=== PATIENT | male | born 1955 | race Caucasian/White ===

== ENCOUNTER → 2019-11-22 07:35 | Outpatient (BNVA) | payer MEDICAID, SELFPAY | PROVIDERS: Family Provider Nurse Practitioner Family; PCP Nurse Practitioner Family; Visit Provider Psychiatry & Neurology Psychiatry | DX: F21 Schizotypal disorder (principal); F31.89 Other bipolar disorder | CPT/HCPCS: 99213 ==

== ENCOUNTER → 2020-02-15 11:09 | Outpatient (BNVA) | payer MEDICAID, SELFPAY | PROVIDERS: Family Provider Nurse Practitioner Family; PCP Nurse Practitioner Family; Visit Provider Psychiatry & Neurology Psychiatry | DX: F21 Schizotypal disorder (principal); F31.89 Other bipolar disorder | CPT/HCPCS: 99213 ==

== ENCOUNTER → 2020-04-18 08:10 | Outpatient (BNVA) | payer MEDICAID, SELFPAY | PROVIDERS: Family Provider Nurse Practitioner Family; PCP Nurse Practitioner Family; Visit Provider Psychiatry & Neurology Psychiatry | DX: F21 Schizotypal disorder (principal); F31.89 Other bipolar disorder | CPT/HCPCS: 99213 ==

== ENCOUNTER → 2020-06-19 07:58 | Outpatient (BNVA) | payer MEDICAID, SELFPAY | PROVIDERS: Family Provider Nurse Practitioner Family; PCP Nurse Practitioner Family; Visit Provider Psychiatry & Neurology Psychiatry | DX: F21 Schizotypal disorder (principal); F31.89 Other bipolar disorder | CPT/HCPCS: 99213 ==

== ENCOUNTER → 2020-09-13 09:00 | Outpatient (BNVA) | payer MEDICAID, SELFPAY | PROVIDERS: Family Provider Nurse Practitioner Family; Visit Provider Psychiatry & Neurology Psychiatry | DX: F21 Schizotypal disorder (principal); F31.89 Other bipolar disorder | CPT/HCPCS: 99214 ==

== ENCOUNTER → 2020-12-06 09:07 | Outpatient (BNVA) | payer MEDICAID, SELFPAY | PROVIDERS: Family Provider Nurse Practitioner Family; Visit Provider Psychiatry & Neurology Psychiatry | DX: F21 Schizotypal disorder (principal); F31.89 Other bipolar disorder | CPT/HCPCS: 99214 ==

== ENCOUNTER → 2021-03-26 06:55 | Outpatient (BNVA) | payer MEDICAID, SELFPAY | PROVIDERS: Family Provider Nurse Practitioner Family; PCP Nurse Practitioner Family; Visit Provider Psychiatry & Neurology Psychiatry | DX: F31.89 Other bipolar disorder (principal); F21 Schizotypal disorder | CPT/HCPCS: 99214 ==

== ENCOUNTER → 2021-06-18 07:58 | Outpatient (BNVA) | payer MEDICAID, SELFPAY | PROVIDERS: Family Provider Nurse Practitioner Family; PCP Nurse Practitioner Family; Visit Provider Psychiatry & Neurology Psychiatry | DX: F31.89 Other bipolar disorder (principal); F21 Schizotypal disorder; G47.20 Circadian rhythm sleep disorder, unspecified type | CPT/HCPCS: 99214 ==

== ENCOUNTER → 2021-10-16 13:58 | Outpatient (BNVA) | payer MEDICAID, SELFPAY | PROVIDERS: Family Provider Nurse Practitioner Family; PCP Nurse Practitioner Family; Visit Provider Internal Medicine Cardiovascular Disease | DX: I25.118 Atherosclerotic heart disease of native coronary artery with other forms of angina pectoris (principal); I77.810 Thoracic aortic ectasia; I10 Essential (primary) hypertension; J44.9 Chronic obstructive pulmonary disease, unspecified; E11.9 Type 2 diabetes mellitus without complications; Z79.4 Long term (current) use of insulin; Z79.84 Long term (current) use of oral hypoglycemic drugs; Z87.891 Personal history of nicotine dependence; I25.2 Old myocardial infarction | CPT/HCPCS: 99214 ==

== ENCOUNTER → 2023-07-12 15:09 | Outpatient (BNVA) | payer MEDICAID, SELFPAY | PROVIDERS: Family Provider Nurse Practitioner Family; PCP Nurse Practitioner Family; Visit Provider Internal Medicine Cardiovascular Disease | DX: R07.9 Chest pain, unspecified (principal); I48.91 Unspecified atrial fibrillation; I10 Essential (primary) hypertension; I25.10 Atherosclerotic heart disease of native coronary artery without angina pectoris; E78.5 Hyperlipidemia, unspecified; E11.43 Type 2 diabetes mellitus with diabetic autonomic (poly)neuropathy | CPT/HCPCS: 93005; 99215 ==

== ENCOUNTER 2025-04-07 15:52 | Observation (INO) | payer MEDICAID, SELFPAY ==
[2025-04-07] VITALS (31 sets, daily range): BP systolic 105–153; BP diastolic 54–101; PULSE 64–120; RESP 0–34; TEMP 36.9; O2SAT 92–99
--- NOTE | 2025-04-07 15:55 | ECG_ITS ---
[facility] Test Date: 2025-04-07 Pat Name: Marcos Pride Department: Room: 101 Gender: Male Applied Researcher: : [id number] Requested By: Aristides Leyva Order Number: [id number] Reading MD: ANH GUNN Measurements Intervals [place] Rate: 99 P: 0 IA: 0 QRS: -28 QRSD: 94 T: 193 QT: 344 QTc: 442 Interpretive Statements ATRIAL FIBRILLATION BORDERLINE LEFT AXIS DEVIATION [QRS AXIS < -20] MODERATE T-WAVE ABNORMALITY, CONSIDER INFERIOR ISCHEMIA [-0.1+ mV T-WAVE IN II/aVF] Compared to ECG 07/12/2023 15:13:15 Possible ischemia now present T-wave abnormality still present Electronically Signed On 04-08-2025 22:25:53 CDT by ANH GUNN [email or web address]
--- OUTSIDE RECORDS SUMMARY | 2025-04-07 15:56 | XMS_ITS | Encounter Summary ---
Author Organization [facility] Address [address] [place] [address] Care Team Providers Care Conveyor System Operator Name Role Phone Enrico Skinner MD Primary Care Provider +1 -[phone] Encounter Details Date Type Department Care Team (Latest Contact Info) Description 06/15/2000 Outpatient Historical [facility] Family Medicine- [place] [address] [place] [address] Michael Loco, NO ADDRESS ON FILE Esophageal reflux (Primary Dx); Chronic gingivitis; Unspecified disorder of male genital organs Social History Tobacco Use Types Packs/Day Years Used Date Smoking Tobacco: Never Assessed Sex and Gender Information Value Date Recorded Sex Assigned at Not on file 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
--- OUTSIDE RECORDS SUMMARY | 2025-04-07 15:56 | XMS_ITS | Encounter Summary ---
Author Organization [facility] Address [address] [place] [address] Care Team Providers Care Content Developer Name Role Phone Enrico Skinner MD Primary Care Provider +1 -[phone] Encounter Details Date Type Department Care Team (Latest Contact Info) Description 04/19/2006 Outpatient Historical [facility] Family Medicine- [address] [address] [place] [address] Tracie Sanders MD NO ADDRESS ON FILE Gastritis/Duodenitis (Primary Dx); Esophageal Reflux Social History Tobacco Use Types Packs/Day Years Used Date Smoking Tobacco: Never Assessed Sex and Gender Information Value Date Recorded Sex Assigned at Not on file 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
--- OUTSIDE RECORDS SUMMARY | 2025-04-07 15:56 | XMS_ITS | Encounter Summary ---
Author Organization [facility] Address [address] [place] [address] Care Team Providers Care Master At Arms Name Role Phone Enrico Skinner MD Primary Care Provider +1 -[phone] Encounter Details Date Type Department Care Team (Latest Contact Info) Description 07/08/2007 Outpatient Historical [facility] Imaging and Laboratory Services [address] [place] [address] Cosmo Gandhi MD [facility] [address] [place] [address] Calculus of Ureter Social History Tobacco Use Types Packs/Day Years Used Date Smoking Tobacco: Never Assessed Sex and Gender Information Value Date Recorded Sex Assigned at Not on file 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 Gender Identity Not on file Sexual Orientation Not on file documented as of this encounter Plan of Treatment Not on file documented as of this encounter Procedures Procedure Name Priority Date/Time Associated Diagnosis Comments XR ABDOMEN 1 VW Routine 07/14/2007 2:58 PM EYEGLASS INSPECTOR documented in this encounter Results * XR ABDOMEN 1 VW (07/14/2007 2:58 PM EYEGLASS INSPECTOR) Anatomical Region Laterality Modality Abdomen Other 07/14/2007 2:58 PM EYEGLASS INSPECTOR Narrative 07/14/2007 2:58 PM EYEGLASS INSPECTOR Exam: KUB Date/Time of Exam: Jul 14, 2007 2:58:20 PM History: RIGHT URETERAL STONE 592.1. Comparisons: None. Findings: A right double J ureteral stent is identified. There is a 7 mm calculus adjacent to the proximal to mid right ureteral stent between the L2 and L3 right transverse processes. There is a 4 mm calculus overlying the right renal outline. Bowel gas pattern is unremarkable. Degenerative changes of the lumbar spine are noted. Impressions: 1. Right double J ureteral stent. 2. There is a 7 mm calculus likely in the proximal right ureter adjoining the proximal to mid right ureteral stent. 3. Right renal calculus. - Procedure Note Paddy Sellers - 07/17/2007 Exam: KUB Date/Time of Exam: Jul 14, 2007 2:58:20 PM History: RIGHT URETERAL STONE 592.1. Comparisons: None. Findings: A right double J ureteral stent is identified. There is a 7 mmcalculus adjacent to the proximal to mid right ureteral stent between the L2 and L3 righttransverse processes. There is a 4 mm calculus overlying the right renal outline. Bowel gas pattern isunremarkable. Degenerative changes of the lumbar spine are noted. Impressions: 1. Right double J ureteral stent. 2. There is a 7 mm calculus likely in the proximal right ureter adjoiningthe proximal to mid right ureteral stent. 3. Right renal calculus. - Cosmo Gandhi MD DIAGNOSTIC IMAGING ORDERABLE S Final Result documented in this encounter Visit Diagnoses Diagnosis Calculus of ureter documented in this encounter Care Teams Master At Arms Relationship Specialty Start Date End Date Enrico Skinner MD [address] [facility] [address] [place] [address] PCP - General Family Practice 02/15/18 documented as of this encounter
--- OUTSIDE RECORDS SUMMARY | 2025-04-07 15:56 | XMS_ITS | Encounter Summary ---
Author Organization [facility] Address [address] [place] [address] Care Team Providers Care Wildlife Manager Name Role Phone Enrico Siknner MD Primary Care Provider +1 -[phone] Encounter Details Date Type Department Care Team (Latest Contact Info) Description 08/26/[address] 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 Gender Identity Not on file Sexual Orientation Not on file documented as of this encounter Plan of Treatment Not on file documented as of this encounter Visit Diagnoses Diagnosis Other, multiple, and unspecified sites, insect bite, nonvenomous, without mention of infection(919.4)- Primary Other, multiple, and unspecified sites, insect bite, nonvenomous, without mention of infection Periapical abscess Periapical abscess without sinus Chronic fatigue syndrome documented in this encounter Care Teams Wildlife Manager Relationship Specialty Start Date End Date Enrico Skinner MD [address] [address] [place] [address] PCP - General Family Practice 02/15/18 documented as of this encounter
--- OUTSIDE RECORDS SUMMARY | 2025-04-07 15:56 | XMS_ITS | Encounter Summary ---
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
--- OUTSIDE RECORDS SUMMARY | 2025-04-07 15:56 | XMS_ITS | Encounter Summary ---
Author Organization [facility] Address [address] 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
--- OUTSIDE RECORDS SUMMARY | 2025-04-07 15:56 | XMS_ITS | Encounter Summary ---
Author Organization [facility] Address [address] [place] [address] Care Team Providers Care Bobbin Trucker Name Role Phone Enrico Skinner MD Primary Care Provider +1 -[phone] Encounter Details Date Type Department Care Team (Latest Contact Info) Description 09/30/2000 Outpatient Historical [facility] Family Medicine [address] [address] Michael Loco DO NO ADDRESS ON FILE Other and unspecified noninfectious gastroenteritis and colitis(558.9) (Primary Dx) Social History Tobacco Use Types Packs/Day Years Used Date Smoking Tobacco: Never Assessed Sex and Gender Information Value Date Recorded Sex Assigned at Not on file Legal 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
--- OUTSIDE RECORDS SUMMARY | 2025-04-07 15:56 | XMS_ITS | Encounter Summary ---
Author Organization [facility] Address [address] [place] [address] Care Team Providers Care Detention Officer Name Role Phone Enrico Skinner MD Primary Care Provider +1 -[phone] Encounter Details Date Type Department Care Team (Latest Contact Info) Description 09/07/2000 Outpatient Historical [facility] Family Medicine [address] [phone] Vero Gudino MD Esophageal reflux (Primary Dx) Social History Tobacco Use Types Packs/Day Years Used Date Smoking Tobacco: Never Assessed Sex and Gender Information Value Date Recorded Sex Assigned at Not on file Legal 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
--- OUTSIDE RECORDS SUMMARY | 2025-04-07 15:56 | XMS_ITS | Encounter Summary ---
Author Organization [facility] Address [address] [place] [address] Care Team Providers Care Remote Pilot Operator Name Role Phone Enrico Skinner MD Primary Care Provider +1 -[phone] Encounter Details Date Type Department Care Team (Latest Contact Info) Description 07/25/1999 Outpatient Historical [facility] Family Medicine- [place] [address] [facility] [place] [address] Rekha Ruiz NO ADDRESS ON FILE Sprain thoracic region (Primary Dx); Nonallopathic lesion of cervical region, not elsewhere classified; Nonallopathic lesion of thoracic region, not elsewhere classified; Nonallopathic lesion of rib cage, not elsewhere classified Social History Tobacco Use Types Packs/Day Years Used Date Smoking Tobacco: Never Assessed Sex and Gender Information Value Date Recorded Sex Assigned at Not on file Legal Sex Male 4:50 AM MANAGER SITE Gender Identity Not on file Sexual Orientation Not on file documented as of this encounter Plan of Treatment Not on file documented as of this encounter Visit Diagnoses Diagnosis Sprain thoracic region- Primary Sprain of thoracic region Nonallopathic lesion of cervical region, not elsewhere classified Nonallopathic lesion of thoracic region, not elsewhere classified Nonallopathic lesion of rib cage, not elsewhere classified documented in this encounter Care Teams Remote Pilot Operator Relationship Specialty Start Date End Date Enrico Skinner MD [address] [facility] [address] [place] [address] PCP - General Family Practice 02/15/18 documented as of this encounter
--- OUTSIDE RECORDS SUMMARY | 2025-04-07 15:56 | XMS_ITS | Encounter Summary ---
Author Organization [facility] Address [address] [place] [address] Care Team Providers Care Seo Executive Name Role Phone Enrico Skinner MD Primary Care Provider +1 -[phone] Encounter Details Date Type Department Care Team (Latest Contact Info) Description 01/03/2007 Outpatient Historical [facility] Family Medicine- [place] [address] [place] [address] Tracie Sanders MD NO ADDRESS ON FILE Acute Bronchitis (Primary Dx); Cough Social History Tobacco Use Types Packs/Day Years Used Date Smoking Tobacco: Never Assessed Sex and Gender Information Value Date Recorded Sex Assigned at Not on file 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
--- OUTSIDE RECORDS SUMMARY | 2025-04-07 15:56 | XMS_ITS | Encounter Summary ---
Author Organization [facility] Address [address] [place] [address] Care Team Providers Care Debridging Machine Operator Name Role Phone Enrico Skinner MD Primary Care Provider +1 -[phone] Encounter Details Date Type Department Care Team (Latest Contact Info) Description 07/22/1999 Outpatient Historical [facility] Family Medicine- [place] [address] [place] [address] Michael Loco, NO ADDRESS ON FILE Esophageal reflux (Primary Dx); Backache, unspecified Social History Tobacco Use Types Packs/Day Years Used Date Smoking Tobacco: Never Assessed Sex and Gender Information Value Date Recorded Sex Assigned at Not on file 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
--- OUTSIDE RECORDS SUMMARY | 2025-04-07 15:56 | XMS_ITS | Encounter Summary ---
Author Organization [facility] Address [address] 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 [address] [place] [address] PCP - General Family Practice 02/15/18 documented as of this encounter
--- OUTSIDE RECORDS SUMMARY | 2025-04-07 15:56 | XMS_ITS | Encounter Summary ---
Author Organization [facility] Address [address] [place] [address] Care Team Providers Care Oven Drier Tender Name Role Phone Enrico Skinner MD Primary Care Provider +1 -[phone] Encounter Details Date Type Department Care Team (Latest Contact Info) Description 01/05/2007 Outpatient Historical [facility] Family Medicine [address] [address] Tracie Sanders MD NO ADDRESS ON FILE Pneumonia, Organism Unspecified (Primary Dx); Obstructive Chronic Bronchitis with Exacerbation (CMS/HCC) Social History Tobacco Use Types Packs/Day Years Used Date Smoking Tobacco: Never Assessed Sex and Gender Information Value Date Recorded Sex Assigned at Not on file 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
--- OUTSIDE RECORDS SUMMARY | 2025-04-07 15:56 | XMS_ITS | Encounter Summary ---
Author Organization [facility] Address [address] [place] [address] Care Team Providers Care Bareback Rider Name Role Phone Enrico Skinner MD Primary Care Provider +1 -[phone] Encounter Details Date Type Department Care Team (Late st Contact Info) Description 01/06/2007 Outpatient Historical [facility] Imaging Services-[facility] [place] [address] [place] [address] Social History Tobacco Use Types Packs/Day Years Used Date Smoking Tobacco: Never Assessed Sex and Gender Information Value Date Recorded Sex Assigned at Not on file Legal Sex Male 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
--- OUTSIDE RECORDS SUMMARY | 2025-04-07 15:56 | XMS_ITS | Encounter Summary ---
Author Organization [facility] Address [address] [place] [address] Care Team Providers Care Central Sterile Supply Technician Name Role Phone Enrico Skinner MD Primary Care Provider +1 -[phone] Encounter Details Date Type Department Care Team (Latest Contact Info) Description 06/17/2000 Outpatient Historical [facility] Family Medicine [address] [address] Vero Gudino MD Rectal/anal hemorrhage (Primary Dx) Social History Tobacco Use Types Packs/Day Years Used Date Smoking Tobacco: Never Assessed Sex and Gender Information Value Date Recorded Sex Assigned at Not on file Legal Sex Male 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
--- OUTSIDE RECORDS SUMMARY | 2025-04-07 15:56 | XMS_ITS | Encounter Summary ---
Author Organization [facility] Address [address] [place] [address] Care Team Providers Care Senior Training And Development Rep Name Role Phone Enrico Skinner MD Primary Care Provider +1 -[phone] Encounter Details Date Type Department Care Team (Latest Contact Info) Description 03/01/2000 Outpatient Historical [facility] Family Medicine- [place] [address] [place] [address] Rekha Ruiz NO ADDRESS ON FILE Other chest pain (Primary Dx); Esophageal reflux Social History Tobacco Use Types Packs/Day Years Used Date Smoking Tobacco: Never Assessed Sex and Gender Information Value Date Recorded Sex Assigned at Not on file 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
--- OUTSIDE RECORDS SUMMARY | 2025-04-07 15:56 | XMS_ITS | Clinical Summary ---
Author Organization [facility] Address [facility] [address] [place] [address] Care Team Providers Care Fitness Instructor Name Role Phone Shania Hussein MD Primary Care Provider Allergies Active Allergy Reactions Criticality Noted Date Comments Cefdinir Other (See Comments) 09/10/2023 Flu like symptoms [place] Unknown Nsaids (Non-Steroidal Anti-Inflammatory Drug) Unknown Olanzapine Unknown Salicylates Unknown Venlafaxine Unknown Medications alcohol (BD Single Use Swabs Regular) Pads, MedicatedIndicati ons:Uncontrolled type 2 diabetes mellitus with hyperglycemia USE TWICE DAILY 05/24/20 24 Active Blood-Glucose Meter KitIndications:Un controlled diabetes mellitus with hyperglycemia, with long-term current use of insulin Test 2 times per dayDx: E11.65. #100 lacets, #100 test strips. 1 Each 07/14/19 25 Active blood sugar diagnostic (True Metrix Glucose Test Strip) Strip USE 1 STRIP TO CHECK GLUCOSE TWICE DAILY 100 Strip 3 11/16/19 25 Active lancets (OneTouch Delica Plus Lancet) 33 gaugeIndications: Uncontrolled type 2 diabetes mellitus with hyperglycemia, with long-term current use of insulin USE TO CHECK BLOOD SUGAR TWICE DAILY DX: E11.65 100 Each 2 11/17/19 25 Active OneTouch Verio Flex meter USE TO TEST 2 TIMES DAILY 1 Each 11/17/19 25 Active atorvastatin (LIPITOR) 80 mg tabletIndications :Dyslipidemia TAKE 1 TABLET(80 MG) BY MOUTH DAILY AT BEDTIME 100 Tablet 2 12/14/19 25 Active clopidogreL (PLAVIX) 75 mg TabletIndications :Dyslipidemia TAKE 1 TABLET(75 MG) BY MOUTH DAILY 100 Tablet 2 12/14/19 25 Active isosorbide mononitrate (IMDUR) 60 mg Extended Release 24 hour tablet TAKE 1/2 TABLET BY MOUTH TWICE DAILY 100 Tablet 2 12/14/19 25 Active lisinopriL (PRINIVIL) 5 mg tablet Take 1 Tablet (5 mg) by mouth daily. 100 Tablet 2 12/14/19 25 Active metFORMIN (GLUCOPHAGE) 1,000 mg tabletIndications :Uncontrolled type 2 diabetes mellitus with hyperglycemia, with long-term current use of insulin TAKE 1 TABLET(1000 MG) BY MOUTH TWICE DAILY WITH MEALS 200 Tablet 2 12/14/19 25 Active metoprolol succinate (TOPROL XL) 25 mg Extended Release 24 hour tablet Take 1 Tablet (25 mg) by mouth 2 times daily. 200 Tablet 2 12/14/19 25 Active Insulin [place], Disposable, (TechLITE Pen Needle) 32 gauge x 5/32 NeedleIndications :Uncontrolled type 2 diabetes mellitus with hyperglycemia, with long-term current use of insulin USE DAILY DIRECTED 100 Each 2 12/14/19 25 Active meclizine (ANTIVERT) 12.5 mg tabletIndications :Dizziness Take 1 Tablet (12.5 mg) by mouth 3 times daily as needed for Dizziness. 60 Tablet 1 02/06/20 25 Active insulin glargine (Lantus Solostar U-100 Insulin) 100 unit/mL pen syringeIndication s:Uncontrolled type 2 diabetes mellitus with hyperglycemia, with long-term current use of insulin ADMINISTER 100 UNITS UNDER THE SKIN DAILY 30 mL 3 02/14/20 25 Active nitroglycerin (NITROSTAT) 0.4 mg Tablet, Sublingual Place 1 Tablet (0.4 mg) under tongue every 5 minutes as needed for Chest Pain. 30 Tablet 2 03/15/20 25 Active nitroglycerin (NITROSTAT) 0.4 mg Tablet, Sublingual Place 1 Tablet (0.4 mg) under tongue every 5 minutes as needed for Chest Pain. 30 Tablet 2 12/14/19 25 025 Discontin ued(Reord er) Active Problems Problem Noted Date Diagnosed Date History of stroke without residual deficits 01/2021 Stable angina 05/10/2020 Obesity (BMI 30.0-34.9) 04/24/2020 Benign hypertension 07/12/2019 Aortic aneurysm without rupture 08/13/2015 Uncontrolled type 2 diabetes mellitus with hyper glycemia 02/20/2013 CAD (coronary artery disease) 12/31/2011 Abnormal cardiovascular stress test 12/31/2011 Personal history of CVA 02/07/2010 Dyslipidemia 02/07/2010 Chronic back pain 08/09/2009 Vertigo 08/03/2009 Dizziness 08/03/2009 Bipolar disorder, unspecified GERD (gastroesophageal reflux disease) Recurrent major depressive disorder, in partial remission Resolved Problems Problem Noted Date Diagnosed Date Resolved Date Verrucous skin lesion 02/06/20112014 Tobacco use disorder 08/03/2009 015 Overview (10/09/2020): 1.5-2 ppd (06/26) CVA (cerebral vascular accident) 08/03/2009 05/20/2021 Encounters Date Type Department Care Team Description 03/15/[address] [phone] Cande Pichardo FNP [facility] [address] [phone] Cande Pichardo FNP 02/27/2025 External Device Data [place] ABSTRACTION Provider, Abstract 02/19/2025 Results Follow-Up [address] [phone] Cande Pichardo FNP CBC WITH DIFFERENTIAL, COMPREHENSIVE METABOLIC PANEL, HEMOGLOBIN A1C 02/15/[address] [phone] Cande Pichardo FNP Results 02/11/[address] [phone] Cande Pichardo FNP Uncontrolled type 2 diabetes mellitus with hyperglycemia, with long-term current use of insulin ([facility]) 02/05/2025 11:00 AM CDT Office Visit [facility] Medicine [place] [address] [place] [address] [place] [address] [place] [phone] Cande Pichardo FNP Uncontrolled type 2 diabetes mellitus with hyperglycemia, with long-term current use of insulin (CMS/HCC) (Primary Dx); Atrial fibrillation, unspecified type (CMS/HCC); Benign hypertension; Dizziness; Bilateral hearing loss, unspecified hearing loss type; Personal history of noncompliance with medical treatment, presenting hazards to health 01/23/2025 External Device Data [place] ABSTRACTION Provider, Abstract 01/09/2025 External Device Data [place] ABSTRACTION Provider, Abstract from Last 3 Months Immunizations Immunization Administration Dates Next Due (PFIZER)(12 YR UP) COVID-19 VACCINE - EMERGENCY USE AUTHORIZATION, MRNA, [id number](PF) 30 MCG/0.3 ML IM SUSP 03/17/2021,10/11/2020,09/20/2020 (Pfizer Bivalent)(12 Yr Up) COVID-19 Vaccine - Emergency Use Authorization, MRNA, Lnp-S(Pf) 30 Mcg/0.3 Ml Susp 03/31/2022 Pneumococcal vaccine, unspec ified formulation 10/17/2001 Family History Medical History Relation Name Comments Diabetes Maternal Grandfather Diabetes Maternal Grandmother Depression Mother steven liu Healthy Mother steven liu Heart Disease Mother steven liu Heart Disease Other family hx Breast Cancer Neg Hx Cancer Neg Hx Colon Cancer Neg Hx Relation Name Status Comments Maternal Grandfather Maternal Grandmother Mother steven liu Other family hx Alive Social History Tobacco Use Types Packs/Day Years Used Date Smoking Tobacco: Former Cigarettes 3 45 0 10/13/1967 - 10/12/2012 Smokeless Tobacco: Never Tobacco Cessation:Counseling Given: No Alcohol Use Standard Drinks/Week Comments No 0 (1 standard drink = 0.6 oz pur e alcohol) Feeling Safe Answer Date Recorded Are you in a relationship wi th someone who hurts you emotionally and/or physically? 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 Gender Identity Male 03/15/2024 2:30 PM CDT Sexual Orientation Straight 03/15/2024 2: 30 PM CDT Last Filed Vital Signs Vital Sign Reading Time Taken Comments Blood Pressure 100/68 02/05/2025 10:37 AM CDT Pulse 100 02/05/2025 10:37 AM CDT Temperature 36.8 C (98.3 F) 02/05/2025 10:37 AM CDT Respiratory Rate 20 02/05/2025 10:37 AM CDT Oxygen Saturation 99% 02/05/2025 10:37 AM CDT Inhaled Oxygen Concentration - - Weight 101.2 kg (223 lb) 02/05/2025 10:37 AM CDT Height 185.4 cm (6' 1 ) 02/05/2025 10:37 AM CDT Body Mass Index 29.42 02/05/2025 10:37 AM CDT Plan of Treatment Upcoming Encounters Date Type Department Care Team (Late st Contact Info) Description 05/08/2025 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 Medicine [place] [address] [facility] [address] [facility] [place] [phone] Cande Pichardo, [facility] [address] [facility] [place] [address] Health Maintenance Due Date Last Done Comments DTAP/TDAP/TD VACCINES (1 - Tdap) 1975 PNEUMOCOCCAL VACCINE 50+ YEA RS (1 of 2 - PCV) 1975 10/17/2001 COLORECTAL SCREENING 2001 Colorectal Cancer Screening 2001 FIT-DNA Q 3 years 2001 FIT/FOBT Q 1 year 2001 Flex Sig/CT Colonography Q 5 years 2001 Lung Cancer Screening 2006 RSV VACCINE (60+ or ) (1 - Risk 50-74 years 1-dose series) 2006 ZOSTER VACCINE (1 of 2) 2006 Preventative Visit-Managed Medicaid 01/15/2018 01/14/2017 DIABETES ANNUAL FOOT EXAM 12/23/20222021, 11/19/2020, 10/25/2014 DIABETES ANNUAL RETINAL EXAM 09/28/2024 09/29/2023, 06/28/2023 INFLUENZA VACCINE (#1) 2025 3, 03/20/2022, 04/24/2020, Additional history exists COVID-19 Vaccine (2024-07 6 season) 2025 03/31/2022, 03/17/2021, 10/11/2020, Additional history exists DIABETES HBA1C Q 6 MONTHS 08/08/20252024, 09/08/2024, 04/03/2024, Additional history exists DIABETES MICROALBUMIN ANNUAL SCREEN 09/08/2025 09/08/2024, 07/06/2023, 09/04/2022, Additional history exists LDL CHOLESTEROL ANNUAL 09/08/2025 5, 07/06/2023, 02/22/2023, Additional history exists Abdominal Aortic Aneurysm (A AA) Screening Completed 04/12/2014, 08/25/2013 Procedures Procedure Name Priority Date/Time Associated Diagnosis Comments HEMOGLOBIN A1C Routine 02/05/2025 12:10 PM CDT Uncontrolled type 2 diabetes mellitus with hyperglycemia, with long-term current use of insulin (CMS/HCC) COMPREHENSIVE METABOLIC PANEL Routine 02/05/2025 12:10 PM CDT Uncontrolled type 2 diabetes mellitus with hyperglycemia, with long-term current use of insulin (CMS/HCC) Atrial fibrillation, unspecified type (CMS/HCC) Benign hypertension CBC WITH DIFFERENTIAL Routine 02/05/2025 12:10 PM CDT Uncontrolled type 2 diabetes mellitus with hyperglycemia, with long-term current use of insulin (CMS/HCC) Atrial fibrillation, unspecified type (CMS/HCC) Benign hypertension MICROALBUMIN/CREATINI NE RATIO, RANDOM UR Routine 09/08/2024 11:45 AM CDT Uncontrolled type 2 diabetes mellitus with hyperglycemia (CMS/HCC) Benign hypertension LIPID PANEL Routine 09/08/2024 11:45 AM CDT Uncontrolled type 2 diabetes mellitus with hyperglycemia (CMS/HCC) Dyslipidemia CT ABDOMEN PELVIS WO CONTRAST Stat 04/12/2014 8:38 AM CDT Diarrhea Abdominal pain from Last 3 Months or Most Recently Relevant to Health Maintenance Results * CBC WITH DIFFERENTIAL (02/05/2025 12:10 PM CDT) WBC 7.6 3.8 - 10.8 Thousand/u L [facility] RBC 4.91 4.20 - 5.80 Million/uL [facility] HEMOGLOBIN 15.8 13.2 - 17.1 g/dL [facility] HEMATOCRIT 48.7 38.5 - 50.0 % [facility] MCV 99.2 80.0 - 100.0 fL [facility] MCH 32.2 27.0 - 33.0 pg [facility] MCHC 32.4 32.0 - 36.0 g/dL [facility] Comment: For adults, a slight decrease in the calculated MCHC value (in the range of 30 to 32 g/dL) is most likely not clinically significant; however, it should be interpreted with caution in correlation with other red cell parameters and the patient's clinical condition. RDW 12.9 11.0 - 15.0 % [facility] PLATELETS 296 140 - 400 Thousand/u L [facility] MPV 10.9 7.5 - 12.5 fL [facility] NEUTROPHIL ABSOLUTE 5,373 1,500 - 7,800 cells/uL [facility] LYMPHOCYTE ABSOLUTE 1,505 850 - 3,900 cells/uL [facility] MONOCYTE ABSOLUTE 623 200 - 950 cells/uL [facility] EOSINOPHIL ABSOLUTE 61 15 - 500 cells/uL [facility] BASOPHILS ABSOLUTE 38 0 - 200 cells/uL [facility] NEUTROPHIL 70.7 % [facility] LYMPHOCYTES 19.8 % [facility] MONOCYTE 8.2 % [facility] EOSINOPHILS 0.8 % [facility] BASOPHILS 0.5 % [facility] Comment: Test Performed at: [facility] [address], [place] [address] Nicolás Samson MD Blood 02/05/2025 12:1 0 PM CDT 02/06/2025 3:46 AM CDT Cande LEIGHP HEMATOLOGY ORDERABLES Final Resu lt Performing Organization Address [facility] Co de Phone Number [facility] [phone] [facility] [address] [place] [address] * (ABNORMAL) HEMOGLOBIN A1C (02/05/2025 12:10 PM CDT) HEMOGLOBIN A1C 12.5(H) <5.7 % [facility] Comment: For someone without known diabetes, a hemoglobin A1c value of 6.5% or greater indicates that they may have diabetes and this should be confirmed with a follow-up test. For someone with known diabetes, a value <7% indicates that their diabetes is well controlled and a value greater than or equal to 7% indicates suboptimal control. A1c targets should be individualized based on duration of diabetes, age, comorbid conditions, and other considerations. Currently, no consensus exists regarding use of hemoglobin A1c for diagnosis of diabetes for children. ESTIMATED AVERAGE GLUCOSE (MG/DL) 312 mg/dL [facility] ESTIMATED AVERAGE GLUCOSE (MMOL/L) 17.3 mmol/L [facility] Comment: Test Performed at: [facility] [address] [facility] [place] [address] Nicolás Samson MD Blood 02/05/2025 12:1 0 PM CDT 02/06/2025 3:46 AM CDT Cande GU CHEMISTRY ORDERABLES Final Resul t Performing Organization Address [facility] Co de Phone Number [facility] [phone] [facility] [address] [place] [address] * (ABNORMAL) COMPREHENSIVE METABOLIC PANEL (02/05/2025 12:10 PM CDT) GLUCOSE 430(H) 65 - 99 mg/dL [facility] Comment: Verified by repeat analysis. Fasting reference interval For someone without known diabetes, a glucose value >125 mg/dL indicates that they may have diabetes and this should be confirmed with a follow-up test. BUN 26(H) 7 - 25 mg/dL [facility] CREATININE 0.91 0.70 - 1.35 mg/dL [facility] GFR 92 > OR = 60 mL/min/1.7 3m2 [facility] BUN/CREAT RATIO 29(H) 6 - 22 (calc) [facility] SODIUM 131(L) 135 - 146 mmol/L [facility] POTASSIUM 5.2 3.5 - 5.3 mmol/L [facility] CHLORIDE 99 98 - 110 mmol/L [facility] CO2 20 20 - 32 mmol/L [facility] CALCIUM 8.9 8.6 - 10.3 mg/dL [facility] TOTAL PROTEIN 6.5 6.1 - 8.1 g/dL [facility] ALBUMIN 3.6 3.6 - 5.1 g/dL [facility] GLOBULIN 2.9 1.9 - 3.7 g/dL (calc) [facility] ALBUMIN/GLOBULIN RATIO 1.2 1.0 - 2.5 (calc) [facility] BILIRUBIN TOTAL 0.7 0.2 - 1.2 mg/dL [facility] ALKALINE PHOSPHATASE 110 35 - 144 U/L [facility] AST 11 10 - 35 U/L [facility] ALT 14 9 - 46 U/L [facility] Comment: Test Performed at: [facility] [address] [facility] [place] [address] Nicolás Samson MD Blood 02/05/2025 12:1 0 PM CDT 02/06/2025 3:46 AM CDT us Cande GU CHEMISTRY ORDERABLES Final Resul t [facility] [phone] [facility] [address] [place] [address] * (ABNORMAL) MICROALBUMIN/CREATININE RATIO, RANDOM UR (09/08/2024 11:45 AM CDT) Creatinine, Urine 36 20 - 320 mg/dL [facility] MICROALBUMIN, URINE 2.7 See Note: mg/dL [facility] Comment: Reference Range: Reference Range Not established MICROALBUMIN/CREAT RATIO, UR 75(H) <30 mg/g creat [facility] Comment: The ADA defines abnormalities in albumin excretion as follows: Albuminuria Category Result (mg/g creatinine) Normal to Mildly increased <30 Moderately increased 30-299 Severely increased > OR = 300 The ADA recommends that at least two of three specimens collected within a 3-6 month period be abnormal before considering a patient to be within a diagnostic category. Test Performed at: [facility] [address] [place] [address] Nicolás Samson MD Urine URINE SPECIMEN OBTAINED BY CLEAN CATCH PROCEDURE / Unknown 09/08/2024 11:45 AM CDT 09/09/2024 3:12 AM CDT Cande Pichardo LEAD PASTOR URINE ORDERABLES Final Result [facility] [phone] [facility] [address] [place] [address] * (ABNORMAL) LIPID PANEL (09/08/2024 11:45 AM CDT) CHOLESTEROL 109 <200 mg/dL [facility] HDL 30(L) > OR = 40 mg/dL [facility] TRIGLYCERIDE 127 <150 mg/dL [facility] LDL CALCULATED 58 mg/dL (calc) [facility] Comment: Reference range: <100 Desirable range <100 mg/dL for primary prevention; <70 mg/dL for patients with CHD or diabetic patients with > or = 2 CHD risk factors. LDL-C is now calculated using the Wayne calculation, which is a validated novel method providing better accuracy than the Friedewald equation in the estimation of LDL-C. Candelario SILVA et al. LUAN. 2013;310(19): 5778-1686 (http://education.OptiNose.Startup Genome/faq/ECH241) CHOL/HDL RATIO 3.6 <5.0 (calc) [facility] NON-HDL CHOLESTEROL 79 <130 mg/dL (calc) [facility] Comment: For patients with diabetes plus 1 major ASCVD risk factor, treating to a non-HDL-C goal of <100 mg/dL (LDL-C of <70 mg/dL) is considered a therapeutic option. Test Performed at: [facility] [address] [place] [address] Nicolás Samson MD Blood 09/08/2024 11:4 5 AM CDT 09/09/2024 3:09 AM CDT us Cande Pichardo LEAD PASTOR CHEMISTRY ORDERABLES Final Resul t [facility] [phone] [facility] [address] [place] [address] * CT ABDOMEN PELVIS WO CONTRAST (04/12/2014 8:38 AM CDT) Anatomical Region Laterality Modality Abdomen Other Narrative 04/12/2014 9:[address] ABDOMEN and PELVIS, non-contrast, 12 April 2014 TECHNIQUE With the patient supine in the scanning gantry, with no oral or IV contrast administered, helical axial imaging was obtained from above the diaphragm through the pelvis at 5 mm increments for axial images. Sagittal and coronal reconstructions are also obtained. The study of 25 August 2013 is compared. DESCRIPTION The heart appears unremarkable to the extent visualized. Lung bases show no infiltrate or effusion. Unenhanced liver again shows the 1.3 cm low-density lesion compatible with cyst or hemangioma. Status post cholecystectomy is again noted. Common duct remains mildly prominent. Unenhanced spleen appears unremarkable. Unenhanced pancreas appears unremarkable. Unenhanced adrenal glands appear normal. Unenhanced kidneys remain unremarkable for hydronephrosis. There is unchanged minimal right nephrolithiasis with several punctate calcifications present. There is persistence of a water density lesion of the lower pole left kidney anteriorly. No ureterolithiasis is seen. The small bowel shows no obstructive distention or significant air-fluid level. Appendix is identified without inflammatory change seen. Colon shows moderate fecal artifact with no pericolic inflammatory change seen. Urinary bladder appears unremarkable. Pelvic structures appear unremarkable. Prostate calcifications are noted. No free fluid, free air, or adenopathy are seen. There is minimal osteoarthritis of the spine. No abdominal wall or inguinal hernia is seen. IMPRESSION 1. negative for hydronephrosis or ureterolithiasis 2. minimal right nephrolithiasis 3. no acute abdominal findings seen COMMENT reported to Dr. Walter in the ER at 0855 hours 12 April 2014 Procedure Note Zeyad Ferris MD - 08/19/[address] ABDOMEN and PELVIS, non-contrast, 12 April 2014 TECHNIQUE With the patient supine in the scanning gantry, with no oral or IV contrast administered, helical axial imaging was obtained from above the diaphragm through the pelvis at 5 mm increments for axial images. Sagittal and coronal reconstructions are also obtained. The study of 25 August 2013 is compared. DESCRIPTION The heart appears unremarkable to the extent visualized. Lung bases show no infiltrate or effusion. Unenhanced liver again shows the 1.3 cm low-density lesion compatible with cyst or hemangioma. Status post cholecystectomy is again noted. Common duct remains mildly prominent. Unenhanced spleen appears unremarkable. Unenhanced pancreas appears unremarkable. Unenhanced adrenal glands appear normal. Unenhanced kidneys remain unremarkable for hydronephrosis. There is unchanged minimal right nephrolithiasis with several punctate calcifications present. There is persistence of a water density lesion of the lower pole left kidney anteriorly. No ureterolithiasis is seen. The small bowel shows no obstructive distention or significant air-fluid level. Appendix is identified without inflammatory change seen. Colon shows moderate fecal artifact with no pericolic inflammatory change seen. Urinary bladder appears unremarkable. Pelvic structures appear unremarkable. Prostate calcifications are noted. No free fluid, free air, or adenopathy are seen. There is minimal osteoarthritis of the spine. No abdominal wall or inguinal hernia is seen. IMPRESSION 1. negative for hydronephrosis or ureterolithiasis 2. minimal right nephrolithiasis 3. no acute abdominal findings seen COMMENT reported to Dr. Walter in the ER at 0855 hours 12 April 2014 us Jose Maria Walter MD CT ORDERABLES Final Result from Last 3 Months or Most Recently Relevant to Health Maintenance Insurance * Guarantor: Marcos [employer] Account Type Relation to Patient Date of Phone Billing Address Personal/Family Self 1955 [address] [place] [address] [place]ICAID [place] Care Teams Fitness Instructor Relationship Specialty Start Date End Date Shania Hussein MD [address] [facility] [address] [place] [phone] PCP - General Family Practice 08/13/23
--- OUTSIDE RECORDS SUMMARY | 2025-04-07 15:56 | XMS_ITS | Encounter Summary ---
Author Organization [facility] Address [address] 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
--- OUTSIDE RECORDS SUMMARY | 2025-04-07 15:56 | XMS_ITS | Encounter Summary ---
Author Organization [facility] Address [address] [place] [address] Care Team Providers Care Pipe Recovery Specialist Name Role Phone Enrico Skinner MD Primary Care Provider [phone] Encounter Details Date Type Department Care Team (Latest Contact Info) Description 03/09/2000 Outpatient Historical [facility] [address] [phone] Vero Gudino MD Other chest pain (Primary Dx) Social History Tobacco Use Types Packs/Day Years Used Date Smoking Tobacco: Never Assessed Sex and Gender Information Value Date Recorded Sex Assigned at Not on file 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
--- OUTSIDE RECORDS SUMMARY | 2025-04-07 15:56 | XMS_ITS | Encounter Summary ---
Author Organization [facility] Address [address] [place] [address] Care Team Providers Care Health And Wellness Coach Name Role Phone Enrico Skinner MD Primary Care Provider +1 [phone] Encounter Details Date Type Department Care Team (Latest Contact Info) Description 05/09/2007 Outpatient Historical [facility] Family Medicine- [place] [address] [place] [address] Tracie Sanders MD NO ADDRESS ON FILE Contact Dermatitis and Other Eczema, due to Unspecified Cause (Primary Dx); Cellulitis and Abscess of Unspecified Site Social History Tobacco Use Types Packs/Day Years Used Date Smoking Tobacco: Never Assessed Sex and Gender Information Value Date Recorded Sex Assigned at Not on file 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
--- OUTSIDE RECORDS SUMMARY | 2025-04-07 15:56 | XMS_ITS | Encounter Summary ---
Author Organization [facility] Address [address] [place] [address] Care Team Providers Care Brand Executive Name Role Phone Enrico Skinner MD Primary Care Provider +1 [phone] Encounter Details Date Type Department Care Team (Late st Contact Info) Description 07/13/2007 Outpatient Historical [facility]ulance [address] 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
--- OUTSIDE RECORDS SUMMARY | 2025-04-07 15:56 | XMS_ITS | Encounter Summary ---
Author Organization [facility] Address [address] [place] [address] Care Team Providers Care Key Person Name Role Phone Enrico Skinner MD Primary Care Provider +1 [phone] Encounter Details Date Type Department Care Team (Latest Contact Info) Description 01/17/2007 Outpatient Historical [facility] Family Medicine- [place] [address] [place] [address] Hanny Shah NP NO ADDRESS ON FILE Chronic Airway Obstruction, not Elsewhere Classified (CMS/HCC) (Primary Dx) Social History Tobacco Use Types Packs/Day Years Used Date Smoking Tobacco: Never Assessed Sex and Gender Information Value Date Recorded Sex Assigned at Not on file 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
--- OUTSIDE RECORDS SUMMARY | 2025-04-07 15:56 | XMS_ITS | Encounter Summary ---
Author Organization [facility] Address [address] [place] [address] Care Team Providers Care Furniture Decals Inspector Name Role Phone Enrico Skinner MD Primary Care Provider +1 [phone] Encounter Details Date Type Department Care Team (Latest Contact Info) Description 03/23/2000 Outpatient Historical [facility] Family Medicine [address] [phone] Vero Gudino MD Other chest pain (Primary Dx) Social History Tobacco Use Types Packs/Day Years Used Date Smoking Tobacco: Never Assessed Sex and Gender Information Value Date Recorded Sex Assigned at Not on file Legal Sex Male 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
--- OUTSIDE RECORDS SUMMARY | 2025-04-07 15:56 | XMS_ITS | Encounter Summary ---
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
--- OUTSIDE RECORDS SUMMARY | 2025-04-07 15:56 | XMS_ITS | Encounter Summary ---
Author Organization [facility] Address [address] [place] [address] Care Team Providers Care Driver Guide Name Role Phone Shania Hussein MD Primary Care Provider +- [phone] Reason for Referral * Eval and Treat (Routine) - Closed Specialty Diagnoses / Procedures Referred By Laurie maria Referred To Contact Endocrinology Diagnoses Uncontrolled type 2 diabetes mellitus with hyperglycemia, with long-term current use of insulin Non compliance w medication regimen Procedures TX OFFICE/OUTPATIENT ESTABLISHED MOD MDM 30 MIN TX OFFICE/OUTPATIENT NEW MODERATE MDM 45 MINUTES Cande Pichardo FNP [address] [place] [address] Phone: tel: fax: [place] [address] [place] [address] Phone: tel: fax: Referral ID Status Reason Start Date Expiration Date Visits Re quested Visits Authorized [id number] Closed 02/22/2025 02/22/2026 1 1 Reason for Visit * Reason Onset Date Comments Lab Results 02/19/2025 Encounter Details Date Type Department Care Team (Latest Contact Info) Description 02/19/2025 Results Follow-Up [facility] Family Medicine [place] [address] [facility] [address] [place] [address] Marino Cande, PHYSICAL DIRECTOR [address] [place] [phone] CBC WITH DIFFERENTIAL, COMPREHENSIVE METABOLIC PANEL, HEMOGLOBIN A1C Social History Tobacco Use Types Packs/Day Years Used Date Smoking Tobacco: Former Cigarettes 3 45 0 10/13/1967 - 10/12/2012 Smokeless Tobacco: Never Alcohol Use Standard Drinks/Week Comments No 0 (1 standard drink = 0.6 oz pur e alcohol) Feeling Safe Answer Date Recorded Are you in a relationship wi th someone who hurts you emotionally and/or physically? No 09/07/2022 Sex and Gender Information Value Date Recorded Sex Assigned at Male 03/15/2024 2:30 PM CDT Legal Sex Male 10:16 AM CALL CENTER RN Gender Identity Male 03/15/2024 2:30 PM CDT Sexual Orientation Straight 03/15/2024 2: 30 PM CDT documented as of this encounter Miscellaneous Notes * Telephone Encounter - Hannah Warner RN - 02/22/2025 10:07 AM CDT 02/22/2025 10:07 AM Called and notified patient of results. Voiced understanding. Patient states that he is unable to survive the trip to [place] and does not want to go to endocrinology. He wants Cande to continue his care for BS. Tried to explain about endocrinology and why provider wants him seen there but patient continued to decline. Hannah HENDERSON * Telephone Encounter - Hannah Warner RN - 02/22/2025 10:07 AM CDT ----- Message from Cande Pichardo sent at 02/22/2025 7:40 AM CDT ----- Kidney function shows persistent low sodium level with a blood sugar level of 430 mg/dL. Blood counts remain within normal limits. Hemoglobin A1c is 12.5% which is an average blood sugar reading of 312 mg/dL and is increased compared to previous result of 11.2% from 5 months ago. Patient needs tosee endocrinology for further evaluation and treatment due to poorly controlled diabetes. Referral placed for specialist in [place]. BRITTANIE Grayson, 02/22/2025 7:38 AM ----- Message ----- From: Branden Hampton Incoming [facility] Results Sent: 02/06/2025 9:24 AM CDT To: BRITTANIE Grayson documented in this encounter Plan of Treatment Upcoming Encounters Date Type Department Care Team (Late st Contact Info) Description 05/08/2025 11:00 AM CALL CENTER RN Office Visit [facility] Medicine [place] [address] [address] Cande Pichardo FNP [address] [place] [phone] Scheduled Referrals Name Type Priority Associated Diagnoses Order Schedule AMB REFERRAL TO ENDOCRINOLOGY Outpatient Referral Routine Uncontrolled type 2 diabetes mellitus with hyperglycemia, with long-term current use of insulin ([facility]) Non compliance w medication regimen Ordered: 02/22/2025 documented as of this encounter Visit Diagnoses Diagnosis Uncontrolled type 2 diabetes mellitus with hyperglycemia, with long-term current use of insulin- Primary Non compliance w medication regimen Personal history of noncompliance with medical treatment, presenting hazards to health documented in this encounter Care Teams Driver Guide Relationship Specialty Start Date End Date Shania Hussein MD [address] [facility] [address] [place] [phone] PCP - General Family Practice 08/13/23 documented as of this encounter
--- OUTSIDE RECORDS SUMMARY | 2025-04-07 15:56 | XMS_ITS | Encounter Summary ---
Author Organization [facility] Address [address] [place] [address] Care Team Providers Care Bale Sewer Name Role Phone Enrico Skinner MD Primary Care Provider +1 [phone] Encounter Details Date Type Department Care Team (Latest Contact Info) Description 03/02/2000 Outpatient Historical [facility] Family Medicine [address] [phone] Vero Gudino MD Other chest pain (Primary Dx) Social History Tobacco Use Types Packs/Day Years Used Date Smoking Tobacco: Never Assessed Sex and Gender Information Value Date Recorded Sex Assigned at Not on file 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
--- OUTSIDE RECORDS SUMMARY | 2025-04-07 15:56 | XMS_ITS | Encounter Summary ---
Author Organization [facility] Address [address] [place] [address] Care Team Providers Care Airport Ramp Supervisor Name Role Phone Enrico Skinner MD Primary Care Provider +1 [phone] Encounter Details Date Type Department Care Team (Late st Contact Info) Description 08/03/2007 Outpatient Historical [facility] Urology- [address]tr[address], 3rd [place] [address] Cosmo Gandhi MD [address] [place] [address] [address] [place] [address] Social History Tobacco Use Types Packs/Day Years Used Date Smoking Tobacco: Never Assessed Sex and Gender Information Value Date Recorded Sex Assigned at Not on file 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
--- OUTSIDE RECORDS SUMMARY | 2025-04-07 15:56 | XMS_ITS | Encounter Summary ---
Author Organization [facility] Address [address] [place] [address] Care Team Providers Care Teller Supervisor Name Role Phone Enrico Skinner MD Primary Care Provider +1 [phone] Encounter Details Date Type Department Care Team (Latest Contact Info) Description 07/15/1999 Outpatient Historical [facility] Family Medicine- [place] [address] [place] [address] Michael Loco, NO ADDRESS ON FILE Abdominal pain, unspecified site (Primary Dx) Social History Tobacco Use Types Packs/Day Years Used Date Smoking Tobacco: Never Assessed Sex and Gender Information Value Date Recorded Sex Assigned at Not on file 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
--- OUTSIDE RECORDS SUMMARY | 2025-04-07 15:56 | XMS_ITS | Encounter Summary ---
Author Organization [facility] Address [address] [place] [address] Care Team Providers Care Child Welfare Manager Name Role Phone Enrico Skinner MD Primary Care Provider +1 [phone] Encounter Details Date Type Department Care Team (Latest Contact Info) Description 07/15/2007 Outpatient Historical [facility] Operating Room [address] [place] [address] Cosmo Gandhi MD [address] [place] [address] [address] [place] [address] Bipolar I Disorder, Most Recent Episode (or Current) Unspecified (CMS/HCC); Tobacco Use Disorder Social History Tobacco Use Types Packs/Day Years Used Date Smoking Tobacco: Never Assessed Sex and Gender Information Value Date Recorded Sex Assigned at Not on file Legal 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 Male 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 No report expected. Procedure Note 07/16/2008 Finalized by interface [employer] utility. No report expected. us Cosmo Gandhi MD DIAGNOSTIC IMAGING ORDERABLE S Final Result documented in this encounter Visit Diagnoses Diagnosis Bipolar I disorder, most recent episode (or current) unspecified ([facility]) Bipolar I disorder, most recent episode (or current) unspecified Tobacco use disorder documented in this encounter Care Teams Child Welfare Manager Relationship Specialty Start Date End Date Enrico Skinner MD [address] [address] PCP - General Family Practice 02/15/18 documented as of this encounter
--- OUTSIDE RECORDS SUMMARY | 2025-04-07 15:56 | XMS_ITS | Encounter Summary ---
Author Organization [facility] Address [address] [place] [address] Care Team Providers Care Primer Press Operator Name Role Phone Enrico Skinner MD Primary Care Provider +1 -[phone] Reason for Referral * Outpatient Services (Routine) - Closed Specialty Diagnoses / Procedures Referred By Contac t Referred To Contact Diagnoses Personal history of CVA Procedures MRA HEAD WO CONTRAST Tracie Sanders MD NO ADDRESS ON FILE [facility] [address] [facility] [address] [place] [address] Phone: tel: fax: Referral ID Status Reason Start Date Expiration Date Visits Re quested Visits Authorized [id number] Closed 02/18/2010 08/17/2010 1 1 Encounter Details Date Type Department Care Team (Late st Contact Info) Description 02/18/2010 Ancillary Orders [facility] Family Medicine- [place] [address] [place] [address] Tracie Sanders MD NO ADDRESS ON FILE Personal History of CVA Social History Tobacco Use Types Packs/Day Years Used Date Smoking Tobacco: Every Day Cigarettes 2 40 Sex and Gender Information Value Date Recorded Sex Assigned at Not on file 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 Possible moderate stenosis is present in the right A1 segment. Narrative 02/19/2010 3:39 PM CDT {NELDA [Modality Name] headings} The quality of this study is only moderate. The study is felt to of diagnostic quality however. The vertebrobasilar system appears normal. The internal carotid siphons appear normal. The anterior and middle cerebral arteries and their major branches are unremarkable. Possible moderate stenosis is present in the A1 segment on the right. Procedure Note Be Arango MD - 02/19/2010 {NELDA [Modality Name] headings} The quality of this study is only moderate. The study is felt to of diagnostic quality however. The vertebrobasilar system appears normal. The internal carotid siphons appear normal. The anterior and middle cerebral arteries and their major branches are unremarkable. Possible moderate stenosis is present in the A1 segment on the right. IMPRESSION Impression: Largely unremarkable study. Possible moderate stenosis is present in the right A1 segment. us Tracie Sanders MD MR ORDERABLES Final Resul t documented in this encounter Visit Diagnoses Diagnosis Personal history of CVA Transient ischemic attack (TIA), and cerebral infarction without residual deficits documented in this encounter Care Teams Primer Press Operator Relationship Specialty Start Date End Date Enrico Skinner MD [address] [phone] PCP - General Family Practice 02/15/18 documented as of this encounter
--- OUTSIDE RECORDS SUMMARY | 2025-04-07 15:56 | XMS_ITS | Encounter Summary ---
Author Organization [facility] Address [address] [place] [address] Care Team Providers Care Utility Maintenance Worker Name Role Phone Enrico Skinner MD Primary Care Provider +1 [phone] Encounter Details Date Type Department Care Team (Late st Contact Info) Description 08/03/2007 Outpatient Historical [facility] Imaging and Laboratory Services [address] [place] [address] Cosmo Gandhi MD [facility] [address] [place] [address] Social History Tobacco Use Types Packs/Day Years Used Date Smoking Tobacco: Never Assessed Sex and Gender Information Value Date Recorded Sex Assigned at Not on file Legal Sex Male 4:50 AM CELL SUPPORT OPERATOR Gender Identity Not on file Sexual Orientation Not on file documented as of this encounter Plan of Treatment Not on file documented as of this encounter Procedures Procedure Name Priority Date/Time Associated Diagnosis Comments XR ABDOMEN 1 VW Routine 08/03/2007 10:31 AM CELL SUPPORT OPERATOR documented in this encounter Results * XR ABDOMEN 1 VW (08/03/2007 10:31 AM CELL SUPPORT OPERATOR) Anatomical Region Laterality Modality Abdomen Other 08/03/2007 10:3 1 AM CELL SUPPORT OPERATOR Narrative 08/03/2007 10:31 AM CELL SUPPORT OPERATOR Exam: KUB Date/Time of Exam: Aug 03, 2007 10:31:37 AM History: right ureteral stone. Findings: Comparison radiograph is dated 07/14/2007. The right ureteral stent has been removed. The calculus projecting over the right psoas muscle has now passed. There is a linear radiopaque density projecting over the right paramidline mid abdomen that appears new since the prior study and is of uncertain significance. This does not appear to be a calculus. There are clips in the right upper quadrant from prior cholecystectomy. The right kidney is obscured. The left kidney is mainly obscured. There are pelvic calcifications likely representing phleboliths or prostatic calcifications given their stability. There is an unremarkable bowel gas pattern. Summary: 1. Interval removal of the right stent. Calculus was passed from the right ureter. 2. Radiopaque linear density in the right paramidline midabdomen of uncertain significance. 3. Unremarkable bowel gas pattern. - Procedure Note Douglas Lechuga Jr. - 08/04/2007 Exam: KUB Date/Time of Exam: Aug 03, 2007 10:31:37 AM History: right ureteral stone. Findings: Comparison radiograph is dated 07/14/2007. The right ureteral stent has been removed. The calculus projecting overthe right psoas muscle has now passed. There is a linear radiopaque density projecting over the rightparamidline mid abdomen that appears new since the prior study and is of uncertain significance. Thisdoes not appear to be a calculus. There are clips in the right upper quadrant from priorcholecystectomy. The right kidney is obscured. The left kidney is mainly obscured. There are pelviccalcifications likely representing phleboliths or prostatic calcifications given theirstability. There is an unremarkable bowel gas pattern. Summary: 1. Interval removal of the right stent. Calculus was passed from the rightureter. 2. Radiopaque linear density in the right paramidline midabdomen ofuncertain significance. 3. Unremarkable bowel gas pattern. - Cosmo Gandhi MD DIAGNOSTIC IMAGING ORDERABLE S Final Result documented in this encounter Visit Diagnoses Not on filedocumented in this encounter Care Teams Utility Maintenance Worker Relationship Specialty Start Date End Date Enrico Skinner MD [address] [facility] [address] [place] [address] PCP - General Family Practice 02/15/18 documented as of this encounter
--- OUTSIDE RECORDS SUMMARY | 2025-04-07 15:56 | XMS_ITS | Encounter Summary ---
Author Organization [facility] Address [address] [place] [address] Care Team Providers Care Laborer Shellfish Processing Name Role Phone Enrico Skinner MD Primary Care Provider +1 [phone] Encounter Details Date Type Department Care Team (Late st Contact Info) Description 07/14/2007 Outpatient Historical [facility]- [address] Entrance B, 3rd [place] [address] Cosmo Gandhi MD [address] [place] [address] [address] [place] [address] Social History Tobacco Use Types Packs/Day Years Used Date Smoking Tobacco: Never Assessed Sex and Gender Information Value Date Recorded Sex Assigned at Not on file Legal Sex Male 4:50 AM CENTRAL OFFICE EQUIPMENT ENGINEER Gender Identity Not on file Sexual Orientation Not on file documented as of this encounter Plan of Treatment Not on file documented as of this encounter Visit Diagnoses Not on filedocumented in this encounter Care Teams Laborer Shellfish Processing Relationship Specialty Start Date End Date Enrico Skinner MD [address] [phone] PCP - General Family Practice 02/15/18 documented as of this encounter
--- OUTSIDE RECORDS SUMMARY | 2025-04-07 15:56 | XMS_ITS | Encounter Summary ---
Author Organization [facility] Address [address] [place] [address] Care Team Providers Care Pusher Runner Name Role Phone Enrico Skinner MD Primary Care Provider +1 [phone] Encounter Details Date Type Department Care Team (Latest Contact Info) Description 01/06/2001 Outpatient Historical [facility] Family Medicine [address] [address] Michael Loco DO NO ADDRESS ON FILE Abdominal pain, unspecified site (Primary Dx); Infection due to other specified bacteria in conditions classified elsewhere and of unspecified site Social History Tobacco Use Types Packs/Day Years Used Date Smoking Tobacco: Never Assessed Sex and Gender Information Value Date Recorded Sex Assigned at Not on file Legal Sex Male 4:50 AM MARINE EQUIPMENT RESEARCH ENGINEER Gender Identity Not on file Sexual Orientation Not on file documented as of this encounter Plan of Treatment Not on file documented as of this encounter Visit Diagnoses Diagnosis Abdominal pain, unspecified site- Primary Infection due to other specified bacteria in conditions classified elsewhere and of unspecified site documented in this encounter Care Teams Pusher Runner Relationship Specialty Start Date End Date Enrico Skinner MD [address] [address] PCP - General Family Practice 02/15/18 documented as of this encounter
--- OUTSIDE RECORDS SUMMARY | 2025-04-07 15:56 | XMS_ITS | Encounter Summary ---
Author Organization [facility] Address [address] [place] [address] Care Team Providers Care Cleaner Laboratory Equipment Name Role Phone Enrico Skinner MD Primary Care Provider +1 [phone] Encounter Details Date Type Department Care Team (Latest Contact Info) Description 03/16/2000 Outpatient Historical [facility] Family Medicine [address] [phone] Vero Gudino MD Chest pain, unspecified (Primary Dx) Social History Tobacco Use Types Packs/Day Years Used Date Smoking Tobacco: Never Assessed Sex and Gender Information Value Date Recorded Sex Assigned at Not on file 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
--- OUTSIDE RECORDS SUMMARY | 2025-04-07 15:56 | XMS_ITS | Clinical Summary ---
Author Organization [facility] ree Address [address] [place] [address] Care Team Providers Care Program Therapist Name Role Phone Enrico Skinner MD Primary Care Provider +1 [phone] Allergies Active Allergy Reactions Criticality Noted Date Comments [place] Unknown Nsaids (Non-Steroidal Anti-I nflammatory Drug) Unknown Olanzapine Unknown Salicylates Unknown Venlafaxine Unknown Medications clonazePAM (KLONOPIN) 1 mg Oral tablet Take 1 mg by mouth daily . Active desvenlafaxine SR 24 hour (PRISTIQ) 50 mg Oral Tb24 Take 50 mg by mouth daily at bedtime. Active lamoTRIgine (LaMICtal) 200 mg tablet Take 200 mg by mouth 2 times daily. Active Blood-Glucose Meter (Biomass CHPTOUCH ULTRA SYSTEM KIT) KitIndications:D iabetes mellitus type II, uncontrolled Test 2 times per day Dx: E11.65. 1 Each 7 Active isosorbide mononitrate (IMDUR) 30 mg Extended Release 24 hour tabletIndication s:Benign hypertension TAKE 1 TABLET BY MOUTH DAILY AT BEDTIME and 1/2 tablet in am. 135 Tablet 1 8 Active alcohol (BD Single Use Swabs Regular) Pads, MedicatedIndicat ions:Uncontrolle d type 2 diabetes mellitus with hyperglycemia, with long-term current use of insulin USE TWICE DAILY.. 100 Each 1 8 Active magnesium oxide (MAG-OX) 400 mg (241.3 mg magnesium) tablet TAKE 1 TABLET(400 MG) BY MOUTH DAILY 90 Tablet 1 0 Active metoprolol succinate (TOPROL XL) 25 mg Extended Release 24 hour tabletIndication s:[facility] Take 1.5 Tablets (37.5 mg) by mouth daily. 135 Tablet 1 0 Active Additional Information Patient taking differently: 25 mgOralTWO TIMES DAILY, Indications: [facility], Reported on 11/27/2019 BD Single Use Swabs Regular Pads, Medicated USE TWICE DAILY 300 Each 2 0 Active metFORMIN (GLUCOPHAGE) 1,000 mg tabletIndication s:Uncontrolled type 2 diabetes mellitus with hyperglycemia, with long-term current use of insulin TAKE 1 TABLET(1000 MG) BY MOUTH TWICE DAILY WITH MEALS 180 Tablet 1 1 Active clopidogreL (PLAVIX) 75 mg TabletIndication s:Dyslipidemia TAKE 1 TABLET(75 MG) BY MOUTH DAILY 90 Tablet 1 1 Active glimepiride (AMARYL) 2 mg tablet TAKE 1 TABLET(2 MG) BY MOUTH DAILY WITH BREAKFAST 90 Tablet 1 1 Active lancets (OneTouch Delica Plus Lancet) 33 gaugeIndications :Uncontrolled type 2 diabetes mellitus with hyperglycemia, with long-term current use of insulin USE TWICE DAILY. E11.65 100 Each 2 1 Active blood sugar diagnostic (OneTouch Ultra Blue Test Strip) StripIndications :Uncontrolled type 2 diabetes mellitus with hyperglycemia, with long-term current use of insulin USE TO TEST BLOOD SUGAR TWICE DAILY 200 Strip 3 1 Active Insulin Dulce, Disposable, (TechLITE Pen Needle) 32 gauge x 5/32 NeedleIndication s:Uncontrolled type 2 diabetes mellitus with hyperglycemia, with long-term current use of insulin USE DIRECTED DAILY 100 Each 1 1 Active lisinopriL (PRINIVIL) 2.5 mg tablet TAKE 2 TABLETS(5 MG) BY MOUTH DAILY 180 Tablet 1 1 Active atorvastatin (LIPITOR) 80 mg tabletIndication s:Dyslipidemia TAKE 1 TABLET(80 MG) BY MOUTH DAILY AT BEDTIME 30 Tablet 1 Active nitroglycerin (NITROSTAT) 0.4 mg Tablet, Sublingual Place 0.4 mg under tongue every 5 minutes as needed for Chest Pain. Active insulin glargine (Lantus Solostar U-100 Insulin) 100 unit/mL pen syringeIndicatio ns:Uncontrolled type 2 diabetes mellitus with hyperglycemia, with long-term current use of insulin Inject 38 units in the AM and 32 units in the PM 21 mL 5 Active Active Problems Problem Noted Date Diagnosed Date History of stroke without residual deficits 01/2021 Stable angina 05/10/2020 Severe obesity (BMI 35.0-39.9) with comorbidity 04/24/2020 Benign hypertension 07/12/2019 Aortic aneurysm without rupture 08/13/2015 Diabetes mellitus type II, uncontrolled 02/21/20 13 CAD (coronary artery disease) 12/31/2011 Abnormal cardiovascular stress test 12/31/2011 Dyslipidemia 02/07/2010 Personal history of CVA 02/07/2010 Chronic back pain 08/09/2009 CVA (cerebral vascular accident) 08/03/2009 Dizziness 08/03/2009 Vertigo 08/03/2009 Recurrent major depressive disorder, in partial remission Bipolar disorder, unspecified GERD (gastroesophageal reflux disease) Resolved Problems Problem Noted Date Diagnosed Date Resolved Date Verrucous skin lesion 02/06/20112014 Tobacco use disorder 08/03/2009 015 Overview (06/22/2012): 1.5-2 ppd (06/26) Immunizations Immunization Administration Dates Next Due ([employer])(12 YR UP) COVID-19 VACCINE - EMERGENCY USE AUTHORIZATION, MRNA, [id number](PF) 30 MCG/0.3 ML IM SUSP 10/11/2020,09/20/2020 Family History Medical History Relation Name Comments Diabetes Maternal Grandfather Diabetes Maternal Grandmother Healthy Mother Heart Disease Mother Heart Disease Other family hx Breast Cancer Neg Hx Cancer Neg Hx Colon Cancer Neg Hx Relation Name Status Comments Maternal Grandfather Maternal Grandmother Mother Other family hx Alive Social History Tobacco Use Types Packs/Day Years Used Date Smoking Tobacco: Former Cigarettes 2 40 0 10/12/1972 - 10/12/2012 Smokeless Tobacco: Never Alcohol Use Standard Drinks/Week Comments No 0 (1 standard drink = 0.6 oz pur e alcohol) Sex and Gender Information Value Date Recorded Sex Assigned at Not on file Legal Sex Male 4:50 AM 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 Gender Identity Not on file Sexual Orientation Not on file Occupation Industry Job Start Date Job End Date Not on file Not on file Not on file Not on file Last Filed Vital Signs Vital Sign Reading Time Taken Comments Blood Pressure 130/62 11/19/2020 1:41 PM CDT Pulse 68 11/19/2020 1:41 PM CDT Temperature 35.8 C (96.4 F) 11/19/2020 1:41 PM CDT Respiratory Rate 16 11/19/2020 1:41 PM CDT Oxygen Saturation 97% 11/19/2020 1:41 PM CDT Inhaled Oxygen Concentration - - Weight 120.3 kg (265 lb 3.2 oz) 11/19/2020 1:41 PM CDT Height 185.4 cm (6' 1 ) 11/19/2020 1:41 PM CDT Body Mass Index 34.99 11/19/2020 1:41 PM CDT Plan of Treatment Health Maintenance Due Date Last Done Comments DIABETES ANNUAL RETINAL EXAM 1974 DTAP/TDAP/TD VACCINES (1 - Tdap) 1975 PNEUMOCOCCAL VACCINE 50+ YEA RS (1 of 2 - PCV) 1975 COLORECTAL SCREENING 2001 Colorectal Cancer Screening 2001 FIT-DNA Q 3 years 2001 FIT/FOBT Q 1 year 2001 06/15/2000 Flex Sig/CT Colonography Q 5 years 2001 RSV VACCINE (60+ or ) (1 - Risk 50-74 years 1-dose series) 2006 ZOSTER VACCINE (1 of 2) 2006 Preventative Visit-Managed Medicaid 01/15/2018 01/14/2017 LDL CHOLESTEROL ANNUAL 11/26/2020 0, 09/30/2018, 01/14/2017, Additional history exists DIABETES MICROALBUMIN ANNUAL SCREEN 05/16/2021 05/16/2020, 12/30/2018, 10/25/2014 DIABETES HBA1C Q 6 MONTHS 05/21/20212020, 08/12/2020, 04/24/2020, Additional history exists DIABETES ANNUAL FOOT EXAM 11/19/2021 11/19/2020, INFLUENZA VACCINE (#1) 2025 0, 07/12/2019, 05/31/2018 COVID-19 Vaccine (3 - 2024-2 6 season) 2025 10/11/2020, 09/20/2020 Procedures Procedure Name Priority Date/Time Associated Diagnosis Comments HEMOGLOBIN A1C Routine 11/19/2020 2:20 PM CDT Uncontrolled type 2 diabetes mellitus with hyperglycemia ([facility]) MICROALBUMIN/CREATI NINE RATIO, RANDOM UR Routine 05/16/2020 10:56 AM CREDIT HISTORIAN Uncontrolled type 2 diabetes mellitus with hyperglycemia, with long-term current use of insulin ([facility]) LIPID PANEL Routine 11/27/2019 1:52 PM CDT Uncontrolled type 2 diabetes mellitus with hyperglycemia ([facility]) Dyslipidemia from Last 3 Months or Most Recently Relevant to Health Maintenance Results * (ABNORMAL) HEMOGLOBIN A1C (11/19/2020 2:20 PM CDT) HEMOGLOBIN A1C 10.6(H) <5.7 % of total Hgb [employer] [place] Comment: For someone without known diabetes, a [...] A1c for diagnosis of diabetes for children. Test Performed at: [facility] [address] [place] [address] Paddy Valencia D.O., MPH Blood 11/19/2020 2:20 PM CDT 11/20/2020 3:46 AM CDT us C[facility] GU CHEMISTRY ORDERABLES Final Resul t [employer] [place] [address] [place] [address] * MICROALBUMIN/CREATININE RATIO, RANDOM UR (05/16/2020 10:56 AM CREDIT HISTORIAN) MICROALBUMIN, URINE <1.2 No Reference Range mg/dL 05/16/2020 9:24 PM [facility] CREATININE, URINE 131.9 40.0 - 278.0 mg/dL 05/16/2020 9:24 PM [facility] Comment:Reference Range vari es with fluid intake and diet. MICROALBUMIN/C REAT RATIO, UR <9.1 <17.0 mg/g 05/16/2020 9:24 PM [facility] Urine URINE SPECIMEN OBTAINED BY CLEAN CATCH PROCEDURE / Unknown Collection / Unknown 05/16/2020 10:56 AM CREDIT HISTORIAN 05/16/2020 8:01 PM CREDIT HISTORIAN Narrative [facility] - 05/16/2020 9:24 PM CREDIT HISTORIAN Condition Microalbumin/Creat ratio Normal Males <17 Normal Females <25 Microalbuminuria Males 17-299 Microalbuminuria Females 25-299 Overt proteinuria >=300 Cande Pichardo [facility] URINE ORDERABLES Final Result [facility] IA# [id number] [address] [place] [address] * (ABNORMAL) LIPID PANEL (11/27/2019 1:52 PM CDT) CHOLESTEROL 143 <200 mg/dL 11/27/2019 9:14 PM CDT [facility] TRIGLYCERIDE 178(H) <150 mg/dL 11/27/2019 9:14 PM CDT [facility] HDL 34(L) 40 - 59 mg/dL 11/27/2019 9:14 PM CDT [facility] LDL CALCULATED 73 <100 mg/dL 11/27/2019 9:14 PM CDT [facility] NON-HDL CHOLESTEROL 109 <130 mg/dL 11/27/2019 9:14 PM CDT [facility] Blood Collection / Unknown 11/27/2019 1:52 PM CDT 11/27/2019 7:54 PM CDT Narrative [facility] - 11/27/2019 9:14 PM CDT TOTAL CHOLESTEROL mg/dL Desirable <200 Borderline high 200-239 High >=240 TRIGLYCERIDES mg/dL Normal <150 Borderline high 150-199 High 200-499 Very high >=500 HDL CHOLESTEROL mg/dL Low <40 Normal 40-59 Desirable >=60 NON HDL CHOLESTEROL mg/dL Optimal <130 Near Optimal 130-159 Borderline High 160-189 Very High >=190 CALCULATED LDL mg/dL LDL <70, OPTIMAL if have Atherosclerotic cardiovascular disease (ASCVD) or intermediate or higher (>7.5%) 10 year risk of ASCVD including most adults with diabetes. LDL <100, Optimal in adult patients with low (<7.5%) 10 year ASCVD risk LDL 100-160, Suboptimal LDL >160, High LDL >190, Very high ATPIII Guidelines Reference Ranges for Lipid Panels (NCEP/AMA) . Cande Pichardo [employer] [facility] CHEMISTRY ORDERABLES Final Resul t [facility] CLIA# [id number] [address] [place] [address] from Last 3 Months or Most Recently Relevant to Health Maintenance Insurance * Guarantor: Marcos Pride Account Type Relation to Patient Date of Phone Billing Address Personal/Family Self 1955 [address] [place] [address] [place]ICA[id number] Advance Directives For more information, please contact: [phone] * Full Code (Latest Code Status on File) Date Activated Date Inactivated Comments 12/31/2011 3:07 PM 12/31/2011 6:36 PM * Full Code Date Activated Date Inactivated Comments 12/31/2011 9:16 AM 12/31/2011 3:07 PM * Full Code Date Activated Date Inactivated Comments 08/03/2009 2:16 PM 08/05/2009 3:14 PM Care Teams Program Therapist Relationship Specialty Start Date End Date Enrico Skinner MD [address] [phone] PCP - General Family Practice 02/15/18
--- OUTSIDE RECORDS SUMMARY | 2025-04-07 15:57 | XMS_ITS | Encounter Summary ---
Author Organization [facility] Address [address] [place] [address] Care Team Providers Care Director Orange Name Role Phone Enrico Skinner MD Primary Care Provider +1 [phone] Encounter Details Date Type Department Care Team (Latest Contact Info) Description 03/26/2003 Outpatient Historical [facility] Family Medicine- [place] [address] [place] [address] Tracie Sanders MD NO ADDRESS ON FILE ESOPHAGEAL REFLUX (Primary Dx); BACKACHE NOS Social History Tobacco Use Types Packs/Day Years Used Date Smoking Tobacco: Never Assessed Sex and Gender Information Value Date Recorded Sex Assigned at Not on file 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
--- OUTSIDE RECORDS SUMMARY | 2025-04-07 15:57 | XMS_ITS | Encounter Summary ---
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
--- OUTSIDE RECORDS SUMMARY | 2025-04-07 15:57 | XMS_ITS | Encounter Summary ---
Author Organization [facility] Address [address] [place] [address] Care Team Providers Care Flagger Name Role Phone Enrico Skinner MD Primary Care Provider +1 [phone] Encounter Details Date Type Department Care Team (Latest Contact Info) Description 09/08/2002 Outpatient Historical [facility] Family Medicine- [place] [address] [place] [address] Tracie Sanders MD NO ADDRESS ON FILE DIARRHEA NOS (Primary Dx) Social History Tobacco Use Types Packs/Day Years Used Date Smoking Tobacco: Never Assessed Sex and Gender Information Value Date Recorded Sex Assigned at Not on file 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
--- OUTSIDE RECORDS SUMMARY | 2025-04-07 15:57 | XMS_ITS | Encounter Summary ---
Author Organization [facility] Address [address] [place] [address] Care Team Providers Care Resort Desk Clerk Name Role Phone Enrico Skinner MD Primary Care Provider +1 [phone] Encounter Details Date Type Department Care Team (Latest Contact Info) Description 12/21/2003 Outpatient Historical [facility] Family Medicine- [place] [address] [place] [address] Tracie Sanders MD NO ADDRESS ON FILE LUMBAGO (Primary Dx) Social History Tobacco Use Types Packs/Day Years Used Date Smoking Tobacco: Never Assessed Sex and Gender Information Value Date Recorded Sex Assigned at Not on file 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
--- OUTSIDE RECORDS SUMMARY | 2025-04-07 15:57 | XMS_ITS | Encounter Summary ---
Author Organization [facility] Address [address] [place] [address] Care Team Providers Care Chemical Sprayer Name Role Phone Enrico Skinner MD Primary Care Provider +1 [phone] Encounter Details Date Type Department Care Team (Latest Contact Info) Description 08/03/2006 Outpatient Historical [facility] General and Trauma Surgery-[address] [place] [address] Jesus Cruz MD [address] [place] [address] Follow-Up Examination, Following Unspecified Surgery (Primary Dx) Social History Tobacco Use Types Packs/Day Years Used Date Smoking Tobacco: Never Assessed Sex and Gender Information Value Date Recorded Sex Assigned at Not on file Legal 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
--- OUTSIDE RECORDS SUMMARY | 2025-04-07 15:57 | XMS_ITS | Encounter Summary ---
Author Organization [facility] Address [address] [place] [address] Care Team Providers Care Product Safety Coordinator Name Role Phone Enrico Skinner MD Primary Care Provider +1 [phone] Encounter Details Date Type Department Care Team (Latest Contact Info) Description 07/18/2006 Outpatient Historical [facility] [address] 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
--- OUTSIDE RECORDS SUMMARY | 2025-04-07 15:57 | XMS_ITS | Encounter Summary ---
Author Organization [facility] Address [address] [place] [address] Care Team Providers Care General Production Manager Name Role Phone Enrico Skinner MD Primary Care Provider +1 -[phone] Encounter Details Date Type Department Care Team (Latest Contact Info) Description 07/18/2006 Outpatient Historical [facility] [address] [place] [address] AMBULANCE, [facility] Abdominal Pain, Right Upper Quadrant (Primary Dx) Social History Tobacco Use Types Packs/Day Years Used Date Smoking Tobacco: Never Assessed Sex and Gender Information Value Date Recorded Sex Assigned at Not on file Legal Sex Male 4:50 AM DIRECTOR PHYSICAL THERAPY Gender Identity Not on file Sexual Orientation Not on file documented as of this encounter Plan of Treatment Not on file documented as of this encounter Visit Diagnoses Diagnosis Abdominal pain, right upper quadrant- Primary documented in this encounter Care Teams General Production Manager Relationship Specialty Start Date End Date Enrico Skinner MD [address] [facility] [address] [place] [address] PCP - General Family Practice 02/15/18 documented as of this encounter
--- OUTSIDE RECORDS SUMMARY | 2025-04-07 15:57 | XMS_ITS | Encounter Summary ---
Author Organization [facility] Address [address] [place] [address] Care Team Providers Care Life Educator Name Role Phone Enrico Skinner MD Primary Care Provider +1 -[phone] Encounter Details Date Type Department Care Team (Latest Contact Info) Description 09/19/2002 Outpatient Historical [facility] General Surgery [address] [address] [address] [place] [address] [place] [address] [facility] [address] [place] [address] ABDOMINAL PAIN UNSPEC SITE (Primary Dx) Social History Tobacco Use Types Packs/Day Years Used Date Smoking Tobacco: Never Assessed Sex and Gender Information Value Date Recorded Sex Assigned at Not on file Legal 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
--- OUTSIDE RECORDS SUMMARY | 2025-04-07 15:57 | XMS_ITS | Encounter Summary ---
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 Social History Tobacco Use Types Packs/Day Years Used Date Smoking Tobacco: Never Assessed Sex and Gender Information Value Date Recorded Sex Assigned at Not on file Legal Sex Male 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 Gender Identity Not on file Sexual Orientation Not on file documented as of this encounter Plan of Treatment Not on file documented as of this encounter Visit Diagnoses Diagnosis Other and unspecified hyperlipidemia- Primary Toxic effect of unspecified gas, fume, or vapor(987.9) Toxic effect of unspecified gas, fume, or vapor Accidental poisoning by primarily systemic agents(E858.1) Accidental poisoning by primarily systemic agents documented in this encounter Care Teams Dinkey Brakeman Relationship Specialty Start Date End Date Enrico Skinner MD [address] [address] PCP - General Family Practice 02/15/18 documented as of this encounter
--- OUTSIDE RECORDS SUMMARY | 2025-04-07 15:57 | XMS_ITS | Encounter Summary ---
Author Organization 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 [address] [place] [address] PCP - General Family Practice 02/15/18 documented as of this encounter
--- OUTSIDE RECORDS SUMMARY | 2025-04-07 15:57 | XMS_ITS | Encounter Summary ---
Author Organization [facility] Address [address] [place] [address] Care Team Providers Care Industrial Paramedic Name Role Phone Enrico Skinner MD Primary Care Provider +1 [phone] Encounter Details Date Type Department Care Team (Latest Contact Info) Description 01/11/2001 Outpatient Historical [facility] Family Medicine- [place] [address] [place] [address] Michael Loco, NO ADDRESS ON FILE Abdominal pain, unspecified site (Primary Dx) Social History Tobacco Use Types Packs/Day Years Used Date Smoking Tobacco: Never Assessed Sex and Gender Information Value Date Recorded Sex Assigned at Not on file Legal 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
--- OUTSIDE RECORDS SUMMARY | 2025-04-07 15:57 | XMS_ITS | Encounter Summary ---
Author Organization [facility] Address [address] [place] [address] Care Team Providers Care Senior Piping Designer Name Role Phone Enrico Skinner MD Primary Care Provider +1 [phone] Encounter Details Date Type Department Care Team (Late st Contact Info) Description 07/18/2006 Inpatient Historical [facility] Fernando Gong MD [address] [place] [address] Calculus of GB w/ Acute Cyst (Primary Dx) Social History Tobacco Use Types Packs/Day Years Used Date Smoking Tobacco: Never Assessed Sex and Gender Information Value Date Recorded Sex Assigned at Not on file Legal Sex Male 4:50 AM DATABASE SECURITY 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 Gender Identity Not on file Sexual Orientation Not on file documented as of this encounter Plan of Treatment Not on file documented as of this encounter Procedures Procedure Name Priority Date/Time Associated Diagnosis Comments CBC WITH DIFFERENTIAL Routine 07/18/2006 6:44 AM DATABASE SECURITY 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 LIPASE Routine 07/18/2006 6:44 AM DATABASE SECURITY 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 AMYLASE Routine 07/18/2006 6:44 AM DATABASE SECURITY 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 COMPREHENSIVE METABOLIC PANEL Routine 07/18/2006 6:44 AM DATABASE SECURITY 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 documented in this encounter Results * AMYLASE (07/18/2006 6:44 AM DATABASE SECURITY 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) AMYLASE 64 20 - 104 U/L INTERFACE SYSTEM Comment: As of 05 the [facility] has changed testing methods. The new reference range is 20-104 The old referance range was 30-120 07/18/2006 6:44 AM DATABASE SECURITY 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 Marcos Lin MD CHEMISTRY ORDERABLES Edite d Performing Organization Address [facility] de Phone Number INTERFACE SYSTEM Refer to clinic/hospital department * LIPASE (07/18/2006 6:44 AM DATABASE SECURITY 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) LIPASE 42 6 - 51 U/L INTERFACE SYSTEM Comment: As of 05 the [facility] has changed testing methods. The new reference range is 6-51 The old referance range was 23-300 07/18/2006 6:44 AM DATABASE SECURITY 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 Marcos Lin MD CHEMISTRY ORDERABLES Edite d Performing Organization Address [facility] Phone Number INTERFACE SYSTEM Refer to clinic/hospital department * (ABNORMAL) COMPREHENSIVE METABOLIC PANEL (07/18/2006 6:44 AM DATABASE SECURITY 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) GLUCOSE 109 70 - 110 mg/dL INTERFACE SYSTEM BUN 9 9 - 20 mg/dL INTERFACE SYSTEM CREATININE 0.8 0.7 - 1.5 mg/dL INTERFACE SYSTEM SODIUM 138 136 - 145 mEq/L INTERFACE SYSTEM POTASSIUM 4.4 3.5 - 5.0 mEq/L INTERFACE SYSTEM CHLORIDE 109 95 - 110 mEq/L INTERFACE SYSTEM CO2 25 22 - 32 mmol/l INTERFACE SYSTEM CALCIUM 9.2 8.4 - 10.5 mg/dL INTERFACE SYSTEM TOTAL PROTEIN 6.9 6.3 - 8.2 g/dL INTERFACE SYSTEM ALBUMIN 4.0 3.5 - 5.0 g/dL INTERFACE SYSTEM ALKALINE PHOSPHATASE 185(H) 25 - 100 U/L INTERFACE SYSTEM AST 306(H) 8 - 33 U/L INTERFACE SYSTEM ALT 170(H) 4 - 36 IU/L INTERFACE SYSTEM BILIRUBIN TOTAL 0.6 0.3 - 1.2 mg/dL INTERFACE SYSTEM ANION GAP 8(L) 9 - 20 mEq/L INTERFACE SYSTEM OSMOLALITY, CALCULATED 284 275 - 295 mOsm/Kg INTERFACE SYSTEM GLOBULIN (CALC) 2.9 2.4 - 3.9 g/dL INTERFACE SYSTEM ALBUMIN/GLOBULIN RATIO 1.4 1.0 - 2.3 INTERFACE SYSTEM 07/18/2006 6:44 AM DATABASE SECURITY 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 Marcos Lin MD CHEMISTRY ORDERABLES Edite d INTERFACE SYSTEM Refer to clinic/hospital department * (ABNORMAL) CBC WITH DIFFERENTIAL (07/18/2006 6:44 AM DATABASE SECURITY 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) WBC 9.7 4.8 - 10.8 K/ul INTERFACE SYSTEM RBC 4.63 4.60 - 6.20 Mil/ul INTERFACE SYSTEM HEMOGLOBIN 15.1 14.0 - 18.0 g/dL INTERFACE SYSTEM HEMATOCRIT 43.5 41.0 - 53.0 % INTERFACE SYSTEM MCV 94.0 84.0 - 103.0 Fl INTERFACE SYSTEM MCH 32.6 27.0 - 34.0 pg INTERFACE SYSTEM MCHC 34.7 30.0 - 35.0 g/dL INTERFACE SYSTEM RDW 14.8(H) 11.0 - 14.5 % INTERFACE SYSTEM PLATELETS 293 140 - 440 K/ul INTERFACE SYSTEM MPV 9.8 8.9 - 12.8 Fl INTERFACE SYSTEM NEUTROPHILS 61.9 42.2 - 75.2 % INTERFACE SYSTEM LYMPHOCYTES 29.0 24.0 - 44.0 % INTERFACE SYSTEM MONOCYTES 8.7 2.0 - 10.0 % INTERFACE SYSTEM EOSINOPHILS 0.3 0.0 - 7.0 % INTERFACE SYSTEM BASOPHILS 0.1 0.0 - 1.0 % INTERFACE SYSTEM NEUTROPHIL ABSOLUTE 6.0 2.0 - 8.0 K/uL INTERFACE SYSTEM LYMPHOCYTE ABSOLUTE 2.8 1.2 - 4.0 K/ul INTERFACE SYSTEM MONOCYTE ABSOLUTE 0.8(H) 0.1 - 0.6 K/ul INTERFACE SYSTEM EOSINOPHIL ABSOLUTE 0.0 0.0 - 0.7 K/ul INTERFACE SYSTEM BASOPHILS ABSOLUTE 0.0 0.0 - 0.2 K/ul INTERFACE SYSTEM 07/18/2006 6:44 AM DATABASE SECURITY 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 Marcos Lin MD HEMATOLOGY ORDERABLES Edit ed INTERFACE SYSTEM Refer to clinic/hospital department documented in this encounter Visit Diagnoses Diagnosis Calculus of gallbladder with acute cholecystitis, without mention of obstruction- Primary documented in this encounter Care Teams Senior Piping Designer Relationship Specialty Start Date End Date Enrico Skinner MD [address] [phone] PCP - General Family Practice 02/15/18 documented as of this encounter
--- OUTSIDE RECORDS SUMMARY | 2025-04-07 15:57 | XMS_ITS | Encounter Summary ---
Author Organization [facility] Address [address] [place] [address] Care Team Providers Care Child Care Center Administrator Name Role Phone Enrico Skinner MD Primary Care Provider +1 -[phone] Encounter Details Date Type Department Care Team (Latest Contact Info) Description 10/06/2002 Outpatient Historical [facility] Family Medicine- [place] [address] [place] [address] Tracie Sanders MD NO ADDRESS ON FILE BACKACHE NOS (Primary Dx) Social History Tobacco Use Types Packs/Day Years Used Date Smoking Tobacco: Never Assessed Sex and Gender Information Value Date Recorded Sex Assigned at Not on file Legal 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
--- OUTSIDE RECORDS SUMMARY | 2025-04-07 15:57 | XMS_ITS | Encounter Summary ---
Author Organization [facility] Address [address] [place] [address] Care Team Providers Care Head Waitress Name Role Phone Enrico Skinner MD Primary Care Provider +1 -[phone] Encounter Details Date Type Department Care Team (Latest Contact Info) Description 09/08/2002 Outpatient Historical [facility] Family Medicine- [place] [address] [place] [address] Tracie Sanders MD NO ADDRESS ON FILE DIARRHEA NOS (Primary Dx); LUMBAGO; NONINFEC GASTROENTERIT NEC; ULNAR NERVE LESION Social History Tobacco Use Types Packs/Day Years Used Date Smoking Tobacco: Never Assessed Sex and Gender Information Value Date Recorded Sex Assigned at Not on file Legal Sex Male 4:50 AM SURVEILLANCE AGENT Gender Identity Not on file Sexual Orientation Not on file documented as of this encounter Plan of Treatment Not on file documented as of this encounter Visit Diagnoses Diagnosis Diarrhea- Primary Lumbago Other and unspecified noninfectious gastroenteritis and colitis(558.9) Other and unspecified noninfectious gastroenteritis and colitis Lesion of ulnar nerve documented in this encounter Care Teams Head Waitress Relationship Specialty Start Date End Date Enrico Skinner MD [address] [facility] [address] [place] [address] PCP - General Family Practice 02/15/18 documented as of this encounter
--- OUTSIDE RECORDS SUMMARY | 2025-04-07 15:57 | XMS_ITS | Encounter Summary ---
Author Organization [facility] Address [address] [place] [address] Care Team Providers Care Substance Abuse Clinician Name Role Phone Enrico Skinner MD Primary Care Provider +1 -[phone] Encounter Details Date Type Department Care Team (Latest Contact Info) Description 04/06/2001 Outpatient Historical [facility] ReginaldoJarad MD [address] [phone] Lump or mass in breast (Primary Dx) Social History Tobacco Use Types Packs/Day Years Used Date Smoking Tobacco: Never Assessed Sex and Gender Information Value Date Recorded Sex Assigned at Not on file 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
--- OUTSIDE RECORDS SUMMARY | 2025-04-07 15:57 | XMS_ITS | Encounter Summary ---
Author Organization [facility] Address [address] [place] [address] Care Team Providers Care Stereotype Caster Name Role Phone Enrico Skinner MD Primary Care Provider +1 -[phone] Encounter Details Date Type Department Care Team (Latest Contact Info) Description 11/03/2002 Outpatient Historical [facility] Family Medicine- [place] [address] [place] [address] Tracie Sanders MD NO ADDRESS ON FILE LUMBAGO (Primary Dx); DERMATITIS NOS; HEARING LOSS NOS Social History Tobacco Use Types Packs/Day Years Used Date Smoking Tobacco: Never Assessed Sex and Gender Information Value Date Recorded Sex Assigned at Not on file Legal Sex Male 4:50 AM 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
--- OUTSIDE RECORDS SUMMARY | 2025-04-07 15:57 | XMS_ITS | Encounter Summary ---
Author Organization [facility] Address [address] [place] [address] Care Team Providers Care Buyer Grain Name Role Phone Enrico Skinner MD Primary Care Provider +1 -[phone] Encounter Details Date Type Department Care Team (Latest Contact Info) Description 03/31/2004 Outpatient Historical [facility] Family Medicine- [place] [address] [place] [address] Tracie Sanders MD NO ADDRESS ON FILE HYPERLIPIDEMIA NEC/NOS (Primary Dx) Social History Tobacco Use Types Packs/Day Years Used Date Smoking Tobacco: Never Assessed Sex and Gender Information Value Date Recorded Sex Assigned at Not on file Legal Sex Male 4:50 AM CHANNEL DIRECTOR Gender Identity Not on file Sexual Orientation Not on file documented as of this encounter Plan of Treatment Not on file documented as of this encounter Visit Diagnoses Diagnosis Other and unspecified hyperlipidemia- Primary documented in this encounter Care Teams Buyer Grain Relationship Specialty Start Date End Date Enrico Skinner MD [address] [facility] [address] [place] [address] PCP - General Family Practice 02/15/18 documented as of this encounter
--- OUTSIDE RECORDS SUMMARY | 2025-04-07 15:57 | XMS_ITS | Encounter Summary ---
Author Organization [facility] Address [address] [place] [address] Care Team Providers Care Medication Reconciliation Technician Name Role Phone Enrico Skinner MD Primary Care Provider +1 -[phone] Encounter Details Date Type Department Care Team (Latest Contact Info) Description 02/15/2001 Outpatient Historical [facility] Family Medicine- [place] [address] [place] [address] Michael Loco, NO ADDRESS ON FILE Chest pain, unspecified (Primary Dx); Backache, unspecified Social History Tobacco Use Types Packs/Day Years Used Date Smoking Tobacco: Never Assessed Sex and Gender Information Value Date Recorded Sex Assigned at Not on file Legal Sex Male 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
--- OUTSIDE RECORDS SUMMARY | 2025-04-07 15:57 | XMS_ITS | Encounter Summary ---
Author Organization [facility] Address [address] [place] [address] Care Team Providers Care Regional Hr Manager Name Role Phone Enrico Skinner MD Primary Care Provider +1 -[phone] Encounter Details Date Type Department Care Team (Latest Contact Info) Description 03/24/2004 Outpatient Historical [facility] Family Medicine- [place] [address] [place] [address] Tracie Sanders MD NO ADDRESS ON FILE HYPERTROPHY OF BREAST (Primary Dx); MIXED HYPERLIPIDEMIA Social History Tobacco Use Types Packs/Day Years Used Date Smoking Tobacco: Never Assessed Sex and Gender Information Value Date Recorded Sex Assigned at Not on file Legal 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
--- OUTSIDE RECORDS SUMMARY | 2025-04-07 15:57 | XMS_ITS | Encounter Summary ---
Author Organization [facility] Address [address] [place] [address] Care Team Providers Care V Belt Coverer Name Role Phone Enrico Skinner MD Primary Care Provider +1 -[phone] Encounter Details Date Type Department Care Team (Latest Contact Info) Description 03/24/2004 Outpatient Historical [facility] Family Medicine- [place] [address] [place] [address] Tracie Sanders MD NO ADDRESS ON FILE [facility] USE MEDICATN (Primary Dx) Social History Tobacco Use Types Packs/Day Years Used Date Smoking Tobacco: Never Assessed Sex and Gender Information Value Date Recorded Sex Assigned at Not on file Legal Sex Male 4:50 AM CHANGE MANAGEMENT DIRECTOR Gender Identity Not on file Sexual Orientation Not on file documented as of this encounter Plan of Treatment Not on file documented as of this encounter Visit Diagnoses Diagnosis Encounter for long-term (current) use of other medications- Primary documented in this encounter Care Teams V Belt Coverer Relationship Specialty Start Date End Date Enrico Skinner MD [address] [facility] 60 [place] [address] PCP - General Family Practice 02/15/18 documented as of this encounter
--- OUTSIDE RECORDS SUMMARY | 2025-04-07 15:57 | XMS_ITS | Encounter Summary ---
Author Organization [facility] Address [address] [place] [address] Care Team Providers Care Chipper Name Role Phone Enrico Skinner MD Primary Care Provider +1 -[phone] Encounter Details Date Type Department Care Team (Latest Contact Info) Description 09/22/2002 Outpatient Historical [facility] Family Medicine- [place] [address] [place] [address] Tracie Sanders MD NO ADDRESS ON FILE BACKACHE NOS (Primary Dx) Social History Tobacco Use Types Packs/Day Years Used Date Smoking Tobacco: Never Assessed Sex and Gender Information Value Date Recorded Sex Assigned at Not on file Legal Sex Male 4:50 AM SIGN HANGER Gender Identity Not on file Sexual Orientation Not on file documented as of this encounter Plan of Treatment Not on file documented as of this encounter Visit Diagnoses Diagnosis Backache, unspecified- Primary documented in this encounter Care Teams Chipper Relationship Specialty Start Date End Date Enrico Skinner MD [address] [facility] [address] [place] [address] PCP - General Family Practice 02/15/18 documented as of this encounter
--- OUTSIDE RECORDS SUMMARY | 2025-04-07 15:57 | XMS_ITS | Encounter Summary ---
Author Organization [facility] Address [address] [place] [address] Care Team Providers Care Tapeman Name Role Phone Enrico Skinner MD Primary Care Provider [phone] Encounter Details Date Type Department Care Team (Latest Contact Info) Description 02/23/2001 Outpatient Historical [facility] Family Medicine [address] [address] Michael Loco DO NO ADDRESS ON FILE Unspecified pleural effusion (Primary Dx); Swelling, mass, or lump in chest Social History Tobacco Use Types Packs/Day Years Used Date Smoking Tobacco: Never Assessed Sex and Gender Information Value Date Recorded Sex Assigned at Not on file Legal 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
--- OUTSIDE RECORDS SUMMARY | 2025-04-07 15:57 | XMS_ITS | Encounter Summary ---
Author Organization [facility] Address [address] [place] [address] Care Team Providers Care Assistant Dean Of Students Name Role Phone Enrico Skinner MD Primary Care Provider [phone] Encounter Details Date Type Department Care Team (Late st Contact Info) Description 02/08/2002 Outpatient Historical [facility] Family Medicine- [address] [place] [id number] Social History Tobacco Use Types Packs/Day Years Used Date Smoking Tobacco: Never Assessed Sex and Gender Information Value Date Recorded Sex Assigned at Not on file Legal Sex Male 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
--- OUTSIDE RECORDS SUMMARY | 2025-04-07 15:57 | XMS_ITS | Encounter Summary ---
Author Organization [facility] Address [address] [place] [address] Care Team Providers Care Desk Reporter Name Role Phone Enrico Skinner MD Primary Care Provider [phone] Encounter Details Date Type Department Care Team (Latest Contact Info) Description 08/15/2004 Outpatient Historical [facility] Family Medicine- [address] [place] [address] Tracie Sanders MD NO ADDRESS ON FILE ACUTE PHARYNGITIS (Primary Dx); ACUTE URI NOS; VENTRAL HERNIA NOS Social History Tobacco Use Types Packs/Day Years Used Date Smoking Tobacco: Never Assessed Sex and Gender Information Value Date Recorded Sex Assigned at Not on file Legal 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 Male 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
[2025-04-07] MEDS: heparin 5,000 unit/mL INJ 1 mL 4000 UNIT IVP (16:00)
--- NOTE | 2025-04-07 16:02 | ED_ITS ---
HPI - Chest Pain 2 General: Chief Complaint: Chest Pain Stated Complaint: chest pain Time Seen by Provider: 04/07/25 15:52 History of Present Illness: 69-year-old male presents to the emergen cy room with a complaint of chest pain radiating to his jaw. He states he has a history of coronary disease previously had stents he was at rest when the pain began this persisted he was brought in by EMS EMS felt there was some ST elevation in V3 and 4 and several EKGs showed varying QRS morphology. Does not meet criteria when he first arrived here he is still having chest pain. He did receive aspirin and nitro in the field. Dr. Mckenzie is present on shortly after patient's arrival. His STEMI alert had been [id number]. Dr. Mckenzie reviewed EKG does not feel it meets criteria recommends evaluation. Associated symptoms: Deny abdominal pain, dyspnea or fever(s) Related Data Home Medications ?Medication ?Instructions ?Recorded ?Confirmed atorvastatin 80 mg tablet 80 mg PO DAILY 11/13/1903/15 clopidogrel 75 mg tablet 75 mg PO DAILY 11/13/1903/15 lisinopril 5 mg tablet 5 mg PO DAILY 11/13/1904/07 metformin 1,000 mg tablet 1,000 mg PO DAILY 07/15/21 1 Held on 04/08/25. Instructions: Resume on 04/11/25. insulin glargine 100 unit/mL (3 100 unit SUBCUT DIR ECTED 02/05/22 04/07/25 mL) subcutaneous pen (Lantus Solostar U-100 Insulin) meclizine 12.5 mg tablet 12.5 mg PO TID 04/07/2503/15 metoprolol succinate 25 mg 25 mg PO BID 04/07/2504/07 tablet,extended release 24 hr Previous Rx's ?Medication ?Instructions ?Recorded isosorbide mononitrate 60 mg See Rx Instructions .Rout e 05/13/22 tablet,extended release 24 hr .COMPLEX #90 tabs nitroglycerin 0.4 mg sublingual 0.4 mg sublingual Q5M PRN chest 08/16/23 tablet (Nitrostat) pain #25 tabs apixaban 5 mg tablet (Eliquis) 5 mg PO BID@0900,2100 # 60 tabs 04/08/25 aspirin 81 mg tablet,delayed 81 mg PO DAILY #90 tabs 1 release magnesium oxide 400 mg (241.3 mg 400 mg PO BID #60 tab s 04/08/25 magnesium) tablet pantoprazole 40 mg tablet,delayed 40 mg PO DAILY #60 t abs 04/08/25 release Allergies Allergy/AdvReac Type Severity Reaction Status Date / Time acetaminophen (From [facility] Allergy unknown Verified 07/12/23 14:23 with Codeine) codeine (From [facility] with Allergy unknown Verified 07/12/23 14:23 Codeine) escitalopram (From Lexapro) Allergy unknown Verified 07/12/23 14:23 gabapentin Allergy unknown Verified 07/12/23 14:23 lithium Allergy unknown Verified 07/12/23 14:23 methylphenidate (From Allergy unknown Verified 07/12/23 14:23 Ritalin) NSAIDS (Non-Steroidal Allergy Unknown Verified 07/12/23 14:23 Anti-Inflamma olanzapine (From Zyprexa) Allergy unknown Verified 07/12/23 14:23 paliperidone (From Invega) Allergy unknown Verified 07/12/23 14:23 venlafaxine (From Effexor) Allergy Unknown Verified 07/12/23 14:23 zolpidem (From Ambien) Allergy unknown Verified 07/12/23 14:23 Review of Systems 2 Const: Denies: fever(s) or chills Card: Denies: chest pain Resp: Denies: dyspnea GI: Denies: abdominal pain : Denies: dysuria, urinary frequency or urinary urgency Musc: Denies: neck pain or back pain Skin/Breast: Denies: rash PFSH ED 2 PFSH: Medical History Diabetes 1.5, managed as type 2 CKD (chronic kidney disease) Arteriosclerosis of coronary artery Diabetes mellitus COPD (chronic obstructive pulmonary disease) Schizotypal disorder Bipolar I, recurrent manic episode, full remission History of [place] (myocardial infarction) Aortic root dilation HTN (hypertension) Surgical History S/P PTCA (percutaneous transluminal coronary angioplasty) S/P cholecystectomy Family History Other Diabetes Heart disease Stroke Social History Smoking and tobacco/nicotine status: former use of tobacco/nicotine Quit status (tobacco/nicotine): has quit using Year quit tobacco: 2017 Alcohol intake: never Substance/Drug Use: never Additional social history: 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 He is never had any kids his next of kin is Markos Guzman who is his half-brother patient wants full CODE STATUS as discussed with Walker Corbin MD on 04/07/2025. Patient tells me he likes all sorts of people and has 5000 friends of all races on Facebook Current occupational status: retired Previous occupational history: Worked in the [employer] Physical Exam 2 Const: GENERAL APPEARANCE: cooperative ORIENTATION/CONSCIOUSNESS: Yes awake, Yes oriented to person, Yes oriented to place and Yes oriented to time HENMT: COMMON NORMALS: normocephalic, atraumatic and hearing grossly normal bilaterally HEAD & SCALP: normocephalic and atraumatic Resp: COMMON NORMALS: normal respiratory effort, No retractions, No use of accessory muscles and clear to auscultation bilaterally AUSCULTATION: clear to auscultation bilaterally Cardio: COMMON NORMALS: regular rate, regular rhythm and No murmurs present (Cardio) RATE: regular rate RHYTHM: regular rhythm GI: COMMON NORMALS: Soft to palpation and No hepatosplenomegaly present A USCULTATION: Yes normoactive bowel sounds PALPATION: Yes Soft to palpation, No Tenderness to palpation present (GI), No Guarding due to palpation present (GI) and Yes No hepatosplenomegaly present Extremity: COMMON NORMALS: normal to inspection, capillary refill normal, no clubbing, cyanosis or edema, no calf tenderness and no pedal edema Neuro: SENSORIUM/ORIENTATION: Yes oriented to person, Yes oriented to place and Yes oriented to time Skin: COMMON NORMALS: no rashes or lesions noted GENERAL SKIN EXAM: no rashes or lesions noted Course 2 Vital Signs: Vital signs: Vital Signs Temperature 98.5 F 04/07/25 15:58 Pulse Rate 73 04/08/25 04:00 Respiratory Rate 8 L 04/08/25 04:00 Blood Pressure 104/68 04/08/25 04:00 Pulse Oximetry 95 04/08/25 04:00 Oxygen Delivery Me thod Room Air 04/08/25 00:36 MDM - Chest Pain Medical Decision Making Patient continues to have chest pain no ST elevation but did have a dynamic changes and unstable angina. Dr. Mckenzie was in the department seen the patient is decided to proceed to heart catheterization. Medical Records I reviewed the patient's medical records. Lab Data I reviewed the patient's lab results. 04/08/25 02:22 04/08/25 02:22 All radiology interpretation(s) finalized by discharge EKG Data EKG 1: I personally reviewed and interpreted this EKG as follows: Interpretation: EKG 04/07/[address] elevation in V2 and 3 does not fully meet criteria slight in V4 as well T wave inversion in V5 and [address] elevation. The patient atrial fibrillation with a rate of 94. Reviewed EKG with Dr. Mckenzie. EKG 2: I personally reviewed and interpreted this EKG as follows: Interpretation: EKG 04/07/2025 1620 atrial fibrillation T wave inversion and V3 for [address] depression no acute ST elevation T wave inversions also in 2 and aVF. Compared to 07/12/2023 T wave inversion is new Discharge Plan Discharge Patient Disposition: Admitted As Inpatient Admit Provider: Rekha Moser Clinical Impression: Unstable angina pectoris, HTN (hypertension), COPD (chronic obstructive pulmonary disease), CKD (chronic kidney disease), History of [place] (myocardial infarction), CAD (coronary artery disease) Condition: Stable Discharge Diet: Regular and Diabetic Discharge Activity: Increase activity as tolerated Coding Level of Care Code ED Career Technical Education Teacher for Chg Fwd Heart Score HEART Score Components History: Highly Suspicious EKG: Significant ST-deviation Age: 65 or more yrs Risk Factors: >/=3 Risk Factors Troponin: Baseline Trop >45 ng/L HEART Score RESULT HEART Score: 10
--- NOTE | 2025-04-07 16:09 | PM.CONSULT ---
Providers/Reason For Consult Consulting Physician/Specialty*: Cardiology Reason for Consult*: Chest pain abnormal EKG Requesting Physician: Dr. Singleton Primary Care Provider: Cande Pichardo History of Present Illness History of Present Illness Marcos Pride is a 69 year old male past medical history significant for [id number] [place] status post drug-eluting stent to RCA in 2015 until 2020 he followed up with cardiology and has not had seen any technical research scientist since then, other comorbidities are controlled heart rate, chronic A-fib noted on EKG from 2023 not on anticoagulation, hypertension, schizoaffective hyperlipidemia diabetes mellitus. Today this morning he started having chest pain which increased in frequency and duration and then become more consistent 9 out of 10 radiating to neck jaw, EMS strips are concerning for mild ST coming up in V2 3 and 4 however twelve-lead EKG here did not show ST elevation. Currently chest pain has eased down. We will continue to monitor him closely repeat EKG in 15 minutes and ask for cardiac markers. If he continues to have chest pain I will proceed with urgent left heart cath. Medications/Allergies Home Medications ?Medication ?Instructions ?Recorded ?Confirmed ?Last Taken ?Type atorvastatin 80 mg tablet 80 mg PO DAILY 11/13/19 04/07/25 04/07/25 08:00 History clopidogrel 75 mg tablet 75 mg PO DAILY 11/13/19 04/07/25 Unknown History lisinopril 5 mg tablet 5 mg PO DAILY 11/13/19 04/07/25 04/07/25 History aspirin 325 mg tablet 325 mg PO DAILY 10/22/20 04/07/25 04/07/25 08:00 History metformin 1,000 mg tablet 1,000 mg PO DAILY 07/15/21 04/07/25 04/07/25 08:00 History insulin glargine 100 unit/mL (3 100 unit SUBCUT DIRECTED 02/05/22 04/07/25 04/07/25 08:00 History mL) subcutaneous pen (Lantus Solostar U-100 Insulin) isosorbide mononitrate 60 mg See Rx Instructions .Route 05/13/22 04/07/25 04/07/25 08:00 Rx tablet,extended release 24 hr .COMPLEX #90 tabs nitroglycerin 0.4 mg sublingual 0.4 mg sublingual Q5M PRN chest 08/16/23 04/07/25 Unknown Rx tablet (Nitrostat) pain #25 tabs meclizine 12.5 mg tablet 12.5 mg PO TID 04/07/25 04/07/25 Unknown History metoprolol succinate 25 mg 25 mg PO BID 04/07/25 04/07/25 04/07/25 08:00 History tablet,extended release 24 hr Allergies Allergy/AdvReac Type Severity Reaction Status Date / Time acetaminophen (From [facility] Allergy unknown Verified 07/12/23 14:23 with Codeine) codeine (From [facility] with Allergy unknown Verified 07/12/23 14:23 Codeine) escitalopram (From Lexapro) Allergy unknown Verified 07/12/23 14:23 gabapentin Allergy unknown Verified 07/12/23 14:23 lithium Allergy unknown Verified 07/12/23 14:23 methylphenidate (From Allergy unknown Verified 07/12/23 14:23 Ritalin) NSAIDS (Non-Steroidal Allergy Unknown Verified 07/12/23 14:23 Anti-Inflamma olanzapine (From Zyprexa) Allergy unknown Verified 07/12/23 14:23 paliperidone (From Invega) Allergy unknown Verified 07/12/23 14:23 venlafaxine (From Effexor) Allergy Unknown Verified 07/12/23 14:23 zolpidem (From Ambien) Allergy unknown Verified 07/12/23 14:23 PFSH Acute PFSH: Medical History (Updated 04/07/25 @ 16:17 by Rekha Moser MD) Diabetes mellitus COPD (chronic obstructive pulmonary disease) Schizotypal disorder Bipolar I, recurrent manic episode, full remission History of [place] (myocardial infarction) Aortic root dilation HTN (hypertension) Surgical History S/P PTCA (percutaneous transluminal coronary angioplasty) S/P cholecystectomy Family History Other Diabetes Heart disease Stroke Social History Smoking and tobacco/nicotine status: former use of tobacco/nicotine Vitals/I&O/Wt Last Vital Signs Temp 98.5 F 04/07/25 15:58 Pulse 98 04/07/25 16:02 Resp 34 H 04/07/25 16:02 BP 118/83 04/07/25 16:02 Pulse Ox 98 04/07/25 16:02 O2 Del Method Room Air 04/07/25 16:02 Weight last 48 hrs Weight 230 lb Physical Exam Const: OTHER: GENERAL: Patient is alert, awake and oriented x3. Mild distress, appeared to be sweaty HEART: Regular S1 and S2. No murmur, rub or gallop. LUNGS: Clear to auscultate bilaterally. CENTRAL NERVOUS SYSTEM: Grossly nonfocal. EXTREMITIES: Lower extremities with out edema bilaterally. A&P Assessment and plan 1. Chest pain: Patient has chest pain radiating to neck and jaw, twelve-lead EKG here in ER is not concerning for ST elevation [place], will repeat EKG in 15 minutes and decide accordingly. Cardiac markers will be drawn for serial examination. Will treat him as per ACS protocol 2. Dyslipidemia: 3. Aortic root dilation: 4. Atrial fibrillation, chronic: 5. HTN (hypertension): 6. Schizotypal disorder: Plan: Continue to monitor patient closely with serial cardiac markers, EKGs repeat in 15 minutes or with the chest pain, give aspirin statin and morphine. Further plan will be devised as per progress of the patient. Since patient continues to have chest pain however repeat EKG did not show significant ST elevation [place] given his presentation it must be unstable non-ST elevation [place] therefore we will proceed with urgent left heart cath/PCI if indicated. PDMP PDMP Reviewed: Not Reviewed Consult Attestations Medical Necessity Statement: I am expecting his stay to cross more than 2 midnights. Coding Level of Care Code Acute Code for [facility] Fwd Diagnoses Chest pain R07.9 Dyslipidemia E78.5 Aortic root dilation I77.810 Atrial fibrillation, chronic I48.20 HTN (hypertension) I10 Schizotypal disorder F21
[2025-04-07] MEDS: nitroglycerin 1 gm/inch oint Pkt 1 INCH TOPICAL (16:11)
[2025-04-07] MEDS: ondansetron 2 mg/ML SDV 2 mL 4 MG IVP (16:11)
[2025-04-07] MEDS: morphine 4 mg/mL SDV 1 mL IVP (16:14)
--- NOTE | 2025-04-07 16:15 | PC.NURSE ---
ZOLL pads placed on pt
--- NOTE | 2025-04-07 16:20 | ECG_ITS ---
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
--- NOTE | 2025-04-07 16:31 | XACV_ITS ---
Exam Room: 2 Ht: 185 cm Wt: 104 kg BSA: 2.34 m2 Gender: Male : 1955 Any Known Allergies: Other Exam Priority: Routine Procedure(s): Procedure Description: Diagnostic procedure Procedure Description: PCI procedure Procedure Description: Left Heart Catheterization Procedure Description: Left ventriculography Procedure Description: Drug Eluting Coronary Stent Procedure Description: PTCA Procedure Description: Coronary Angiography Shanti PENA; Diagnostic Cath Status: Urgent Diagnostic Findings * Left Main has no disease. * Circumflex has no disease. * Right Coronary Artery has no disease. * Proximal Left Anterior Descending: severe 90% stenosis, AMMY: 3 flow. * Coronary angiography shows right dominance. Interventional Findings * Successful PCI to proximal LAD. Lesion was prepared with 2.5 x 15 AB trek balloon followed by placement of 3.0 x 26 [place] MDEmigdio drug-coated stent, it was postdilated with 3.5 x 15 mm noncompliant balloon with the guidance of IVUS which showed excellent apposition. No complication noted. AMMY-3 flow was confirmed. * Proximal Left Anterior Descendin% stenosis treated with a AB TREK 2.50X15 RX BALLOON, KOTA R DANIEL 3.0X26 RAMÍREZ, and KOTA SHIN EUPHORA RX [id number] BALLOON. 0% residual stenosis, AMMY: 3 flow. Conclusions 1. Left main: No significant disease LAD: Proximal high-grade eccentric 90% stenosis it is a culprit vessel LCx: Luminal irregularity without significant stenosis RCA: Patent previously placed mid stent it is dominant vessel without significant stenosis. 2. There is severe coronary artery disease with one vessel disease. 3. All mckay are normal. 4. Normal left ventricular systolic function. Ejection fraction of 60%. 5. Proximal Left Anterior Descending was treated with a Balloon, Drug Eluting Stent, and Balloon. Recommendations * 1-Return to inpatient for close monitoring and routine cath care 2-Risk factor modification for secondary prevention 3-Statin and aspirin 81 mg life-long, if tolerated 4-Patient was pre-loaded with 600 mg of Plavix, continue Plavix 75mg p.o. daily for at least one year. We will assess at the end of one year again to continue if further or not 5-Continue optimal medical management 6-Follow up with Dr. Moser in four weeks and your primary care in 10 days. Diagnostic RX Recommendation: PCI w/o planned CABG Ventriculography Ejection Fraction: 60.0 % Pressures Phase:Rest AO : 121 / 56 ( 81 ) @ 1:15:33 PM 121 / 56 ( 82 ) @ 1:15:33 PM 103 / 62 ( 74 ) @ 6:12:00 PM 117 / 53 ( 78 ) @ 6:16:00 PM LV : 118 / -6 / 4 @ 1:15:33 PM 119 / -5 / 4 @ 1:15:33 PM 121 / -6 / 2 @ 1:15:33 PM Valves Phase:DefaultPhase AV : 0.0 @ 6:15:33 PM AV Mean Gradient: 0.0 @ 6:15:33 PM Clinical Evaluation EBL: 5mL-10mL Procedural Details Pre-Procedure Time Out. Identified patient by full name and date of as verbalized by the patient/guarantor. Does the consent match the physician's order: Yes. Accurate & Complete Informed Consent: Yes. Inpatient/Outpatient History & Physical on Chart: Yes. If H&P is completed, is and addenduem needed: No; If yes, is the addendum complete: N/A. Visualize and Verify Site with Patient/Guarantor: N/A. Relevant Radiology Images available: Na. Pre-op teaching completed and patient verbalized understanding. The risks, benefits, and alternatives of sedation and/or procedure were discussed by physician. The patient agrees to continue. Procedure started. [facility] Clinical Fraility Score: 4: Vulnerable. 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 Chest Pain Symptom Assessment: Typical Angina Symptoms. Correct patient, site and procedure confirmed by cath team. Current diagnosis: Unstable angina. PERRLA. Strong, equal hand medical information specialist bilaterally. Lungs clear x 5 lobes. IV Site on Arrival: 20 gauge in the right anticubital. IV Site on Arrival: 20 gauge in the left anticubital. IV Fluids: 0.9% NaCl at KVO. 0 mL infused prior to laborer yard. Pre Procedural Pulses: bilateral radial was 1+. Oxygen started at 2liters/min via nasal canula. right radial was prepped with chloroprep then draped in the usual sterile fashion. right groin was prepped with chloroprep then draped in the usual sterile fashion. Baseline sample Acquired. HR: 104 BPM. Physician notified. Physician arrived. Admit Source: Emergency department. Physician scrubbed in. Immediate Pre-Procedure Time Out. Correct Patient: Yes; Correct Procedure: Yes; Correct Site: Yes; Correct Patient Position: Yes; Correct Supplies: Yes; Dried Flammable Prep: Yes; Blood Products Available: Yes;. Lidocaine 1% infiltrated to the right groin. Arterial access obtained with micropuncture set. A 5 palestinian JL4 catheter in over standard wire. Wire out. Catheter removed over the exchange wire. A 5 palestinian JR4 catheter in over wire. Multiple views taken of right coronary artery. Catheter removed over the exchange wire. 6 palestinian XB 3.5 guide catheter was inserted over the wire. Guide catheter out over exchange wire. A 5 palestinian AL1 catheter in over wire. Catheter removed over the exchange wire. 6 palestinian XB 4 guide catheter was inserted over the wire. Add inventory: Co-harbor pilot , Endoflator. Multiple views taken of left coronary artery. PCI Indication: NSTEMI. Runthrough guidewire was advanced through the guide catheter to lesion in the prox LAD. Wire out to reshape. Runthrough guidewire was advanced through the guide catheter to lesion in the prox LAD. Guidewire advanced across lesion. Balloon inserted to lesion in the prox LAD. Inflation number : 1 A AB TREK 2.50X15 RX BALLOON was prepped and advanced across the Prox LAD , then inflated to 20 DAVID for 0:13 seconds. Inflation number: 2 The AB TREK 2.50X15 RX BALLOON was reinflated across the Prox LAD, to 20 DAVID for 0:14 seconds. Balloon out. Stent inserted to lesion in the prox LAD. Inflation Number : 3 A MDT R DANIEL 3.0X26 RAMÍREZ -Lot Number# [id number] EXP 09-11-2027 was prepped and advanced across the Prox LAD. The stent was deployed at 12 DAVID for 0:12 seconds. Stent balloon out over wire. Balloon inserted to lesion in the prox LAD. Inflation number : 4 A MDT NC EUPHORA RX [id number] BALLOON was prepped and advanced across the Prox LAD , then inflated to 12 DAVID for 0:15 seconds. Inflation number: 5 The MDT NC EUPHORA RX [id number] BALLOON was reinflated across the Prox LAD, to 12 DAVID for 0:17 seconds. Inflation number: 6 The MDT NC EUPHORA RX [id number] BALLOON was reinflated across the Prox LAD, to 12 DAVID for 0:11 seconds. Balloon out. IVUS catheter in over wire to proximal LAD. IVUS run performed of proximal LAD. IVUS catheter out over the wire. Balloon inserted to lesion in the prox LAD. Inflation number: 7 The MDT NC EUPHORA RX [id number] BALLOON was reinflated across the Prox LAD, to 14 DAVID for 0:16 seconds. Balloon out. IVUS catheter in over wire to proximal LAD. IVUS run performed of proximal LAD. IVUS catheter out over the wire. Results checked. Wire out. Guide catheter out over exchange wire. A 5 palestinian Angled Pig catheter in over wire. ACT drawn. Results 242 seconds. Therapeutic limits - pre-heparin administration 90-150 seconds and monitoring heparin during a vascular procedure >250 seconds. EDP Sample taken: LV 118/-7,4; HR: 86 BPM; SpO2: 98%. LV gram performed in ROSAS @ 10 mL/second for a total of 30 mL. EDP Sample taken: LV 119/-6,4; HR: 90 BPM; SpO2: 100%. Pullback taken: LV 121/-7,2; AO 121/56(81); Mean: 0mmHg, Peak to Peak: 0mmHg, SEP: 8sec/min; HR: 84 BPM; SpO2: 99%. Catheter removed over the exchange wire. A Right femoral angiogram was performed to determine safe placement of closure device. A Angio-Seal VIP ([facility]) was successful obtaining hemostatsis at the Right Femoral artery insertion site. LOT # [id number] EXP 11-15-2025. Post Procedure: Pulses reassessed and unchanged. PERRLA. Strong, equal hand medical information specialist bilaterally. No VTE prophylaxis required. Medication's Wasted: Lidocaine 1% = 10 mL. Medication's Wasted: Nitro = 50 mg. Medication's Wasted: Heparin = 2000 unit. Medication's Wasted: Other = Versed 1 mg. Fentanyl 75mcg. Total IV fluids: 75 mL. Post-op diagnosis: Severe proximal LAD stenosis. Status post PCI placement of 1 RAMÍREZ. Complications: None. Estimated blood loss: 5mL-10mL. Responsiveness - Normal response to verbal stimuli; alert and oriented, PERRLA. Airway - Unaffected, no intervention required; spontaneous ventilation. Circulation: W/N/L, pulses unchanged. Nausea/Vomiting: No. Procedure completed. Patient transferred by bed to 1st floor. Vital chart was stopped. Access Site Site: Right Femoral artery Sheath Size: 6 Fr Hemostasis Method: Angio-Seal VIP ([facility]) Hemostasis Success: Successful Procedure Medications Start: 4:57 PM Stop: 4:57 PM Medication: Diphendryamine Amount: 50 mg Route: I.V. Start: 4:57 PM Stop: 4:57 PM Medication: Versed Amount: 1 mg Route: I.V. Start: 4:57 PM Stop: 4:57 PM Medication: Fentanyl Amount: 25 mcg Route: I.V. Start: 5:24 PM Stop: 5:24 PM Medication: Heparin Amount: 6000 units Route: I.V. Start: 5:25 PM Stop: 5:25 PM Medication: Versed Amount: 1 mg Route: I.V. Start: 5:50 PM Stop: 5:50 PM Medication: Versed Amount: 1 mg Route: I.V. Start: 6:06 PM Stop: 6:06 PM Medication: Heparin Amount: 3000 units Route: I.V. I, the attending physician, have reviewed and verified all procedure medications. Yes, all medications given per verbal order Report Signatures Finalized by Rekha Moser MD on 04/15/2025 10:30 PM
--- NOTE | 2025-04-07 18:17 | PM.PROC ---
Procedure Note: Date of procedure: 04/07/25 Pre-procedure diagnosis: Unstable non-ST elevation AZ Post-procedure diagnosis: same Procedure: Left heart cath was performed urgently due to unstable non-ST elevation AZ and dynamic EKG changes Left main: No significant disease LAD has a torturous proximal high-grade 90% hazy stenosis which is the culprit vessel Left circumflex has no significant disease RCA has patent previously placed mid stent without significant disease PCI to proximal LAD with single drug-eluting stent pre and postdilated with compliant and noncompliant balloon, IVUS confirmed good apposition. Patient did not have good radial pulse therefore we opted for right common femoral artery approach. It was Angio-Seal Bedrest for 4 hours Plan: Continue IV fluid 100 mL/h for next 10 hours Continue aspirin and statin beta-melisa Continue home medicine From tomorrow we will start Eliquis because of underlying A-fib Full note to be dictated Coding Level of Care Code Acute Code for Husam Fwmarleny
--- NOTE | 2025-04-07 18:37 | PM.HP ---
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 Patient went to cardiac Automat Car Attendant and was found to have tortuous proximal high-grade 90% hazy stenosis during the culprit vessel and has a single drug-eluting stent placed by Dr. Moser within the last hour. Patient tells me he has chest pain 7/10 right now better than the /10 this morning. Patient tells me his heart rate is as high as 108 or 109 at times and he has been told this will happen because he has A-fib Review of Systems Narrative: General No fevers chills Cardiovascular positive for chest pain palpitations. Typically he has just palpitations is not chest pain but today's chest pain came out of the blue he says Respiratory no shortness breath or cough GI no nausea vomiting no dysuria hematuria he does have frequency and has to pee every hour small amounts when going long trips he has to wear diaper Neuro no seizures or strokes Medications/Allergies Home Medications ?Medication ?Instructions ?Recorded ?Confirmed ?Last Taken ?Type atorvastatin 80 mg tablet 80 mg PO DAILY 11/13/19 04/07/25 04/07/25 08:00 History clopidogrel 75 mg tablet 75 mg PO DAILY 11/13/19 04/07/25 Unknown History lisinopril 5 mg tablet 5 mg PO DAILY 11/13/19 04/07/25 04/07/25 History aspirin 325 mg tablet 325 mg PO DAILY 10/22/20 04/07/25 04/07/25 08:00 History metformin 1,000 mg tablet 1,000 mg PO DAILY 07/15/21 04/07/25 04/07/25 08:00 History insulin glargine 100 unit/mL (3 100 unit SUBCUT DIRECTED 02/05/22 04/07/25 04/07/25 08:00 History mL) subcutaneous pen (Lantus Solostar U-100 Insulin) isosorbide mononitrate 60 mg See Rx Instructions .Route 05/13/22 04/07/25 04/07/25 08:00 Rx tablet,extended release 24 hr .COMPLEX #90 tabs nitroglycerin 0.4 mg sublingual 0.4 mg sublingual Q5M PRN chest 08/16/23 04/07/25 Unknown Rx tablet (Nitrostat) pain #25 tabs meclizine 12.5 mg tablet 12.5 mg PO TID 04/07/25 04/07/25 Unknown History metoprolol succinate 25 mg 25 mg PO BID 04/07/25 04/07/25 04/07/25 08:00 History tablet,extended release 24 hr Allergies Allergy/AdvReac Type Severity Reaction Status Date / Time acetaminophen (From [facility] Allergy unknown Verified 07/12/23 14:23 with Codeine) codeine (From [facility] with Allergy unknown Verified 07/12/23 14:23 Codeine) escitalopram (From Lexapro) Allergy unknown Verified 07/12/23 14:23 gabapentin Allergy unknown Verified 07/12/23 14:23 lithium Allergy unknown Verified 07/12/23 14:23 methylphenidate (From Allergy unknown Verified 07/12/23 14:23 Ritalin) NSAIDS (Non-Steroidal Allergy Unknown Verified 07/12/23 14:23 Anti-Inflamma olanzapine (From Zyprexa) Allergy unknown Verified 07/12/23 14:23 paliperidone (From Invega) Allergy unknown Verified 07/12/23 14:23 venlafaxine (From Effexor) Allergy Unknown Verified 07/12/23 14:23 zolpidem (From Ambien) Allergy unknown Verified 07/12/23 14:23 PFSH Acute PFSH: Medical History (Updated 04/07/25 @ 19:07 by Walker Corbin MD) Diabetes 1.5, managed as type 2 CKD (chronic kidney disease) Arteriosclerosis of coronary artery Diabetes mellitus COPD (chronic obstructive pulmonary disease) Schizotypal disorder Bipolar I, recurrent manic episode, full remission History of AL (myocardial infarction) Aortic root dilation HTN (hypertension) Surgical History S/P PTCA (percutaneous transluminal coronary angioplasty) S/P cholecystectomy Family History Other Diabetes Heart disease Stroke Social History (Updated 04/07/25 @ 18:59 by Walker Corbin MD) Smoking and tobacco/nicotine status: former use of tobacco/nicotine Quit status (tobacco/nicotine): has quit using Year quit tobacco: 2017 Alcohol intake: never Substance/Drug Use: never Additional social history: Patient states he was a [employer] work in the [employer] 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 He is never had any kids his next of kin is Markos Guzman who is his half-brother patient wants full CODE STATUS as discussed with Walker Corbin MD on 04/07/2025. Patient tells me he likes all sorts of people and has 5000 friends of all races on Facebook Current occupational status: retired Previous occupational history: Worked in the [employer] Vitals/I&O/Wt Last Vital Signs Temp 98.5 F 04/07/25 15:58 Pulse 94 04/07/25 16:45 Resp 14 04/07/25 16:45 BP 118/67 04/07/25 16:45 Pulse Ox 92 04/07/25 16:45 O2 Del Method Room Air 04/07/25 16:18 Weight last 48 hrs Weight 104.326 kg Physical Exam Narrative: General well-developed well-nourished male in no acute cardiopulmonary stress CV regular rate and rhythm Lungs clear to auscultation bilaterally Abdomen positive bowel tones soft nontender Calves no tenderness cords pretibial edema Skin warm and dry Mentation alert and oriented Oropharynx edentulous A&P Assessment and plan 1. Acute coronary syndrome: Patient underwent LAD stent continue on aspirin Plavix 2. Atrial fibrillation, chronic: If bleeding does not occur I am going to start this patient on apixaban for chronic A-fib. Will need to discuss with him whether he can afford the medication. In that case likely discontinue aspirin. Fluid bolus 1 L now give 25 mg metoprolol oral and 5 mg IV now 3. Diabetes mellitus: Home Lantus dose is 100 units. I am going to give him 80 units here and a high sliding scale 4. CKD (chronic kidney disease): Stat BMP and magnesium and fluids as above rate control PDMP PDMP Reviewed: Not Reviewed Attestations Medical Necessity Statement*: Patient was observed overnight with his new stent. Anticipate rate control and anticoagulation for A-fib will discuss with Dr. Moser. Patient will need 1-2 midnights in hospital Coding Level of Care Code 16699 Diagnoses Acute coronary syndrome I24.9 Atrial fibrillation, chronic I48.20 Diabetes mellitus E11.9 CKD (chronic kidney disease) N18.9 Time Spent (min) 70
[2025-04-07] MEDS: metoprolol tartrate 1 mg/1 mL SDV 5 mL 5 MG IVP (19:54)
[2025-04-07 20:29] LABS: Anion Gap 20.5 (5-19); Blood Urea Nitrogen 16 mg/dL (8-23); Calcium 7.9 mg/dL (8.5-10.5); Carbon Dioxide 18 mmol/L (22-29); Chloride 96 mmol/L (98-107); Creatinine Clr Calc Pharmacy 112.0880; Glucose 326 mg/dL (65-115); Magnesium 1.4 mg/dL (1.7-2.3); Osmolality Calculated 282 mOsm/kg (285-295); Potassium 5.5 mmol/L (3.5-5.1); Sodium 129 mmol/L (136-145)
[2025-04-07 20:36] LABS: Troponin T (5th) Once 389 ng/L (0-15)
[2025-04-08] VITALS: BP 118/56; PULSE 67; RESP 12; O2SAT 97
[2025-04-08 00:36] VITALS: BP 112/48; PULSE 63; RESP 12; O2SAT 94
[2025-04-08 01:00] VITALS: BP 119/63; PULSE 74; RESP 19; O2SAT 97
[2025-04-08 02:11] VITALS: BP 85/54; PULSE 72; RESP 4; O2SAT 93
[2025-04-08 03:00] VITALS: BP 108/55; PULSE 65; RESP 14; O2SAT 97
[2025-04-08 03:29] LABS: Hematocrit 41.6 % (37-53); Hemoglobin 14.60 g/dL (11.27-16.99); Mean Corpuscular HGB Conc 35.1 g/dL (30-55); Mean Corpuscular Hemoglobin 32.2 pg (27-33); Mean Corpuscular Volume 91.6 fl (82-101); Nucleated Red Blood Cells % 0 %; Platelet Count 279 10^3/cmm (157-399); Red Blood Count 4.54 10^6/uL (3.85-5.65); White Blood Count 8.16 10^3/uL (3.29-11.43)
[2025-04-08 03:54] LABS: Cholesterol 111 mg/dL (0-200); HDL Cholesterol 31 mg/dL (60-100); Magnesium 1.6 mg/dL (1.7-2.3); Triglycerides 75 mg/dL (0-150)
[2025-04-08 03:56] LABS: Anion Gap 18.5 (5-19); Blood Urea Nitrogen 18 mg/dL (8-23); Calcium 8.1 mg/dL (8.5-10.5); Carbon Dioxide 20 mmol/L (22-29); Chloride 102 mmol/L (98-107); Creatinine Clr Calc Pharmacy 112.0880; Glucose 139 mg/dL (65-115); Osmolality Calculated 286 mOsm/kg (285-295); Potassium 4.5 mmol/L (3.5-5.1); Sodium 136 mmol/L (136-145)
[2025-04-08 04:00] VITALS: BP 104/68; PULSE 73; RESP 8; O2SAT 95
[2025-04-08 04:16] LABS: Estmated Average Glucose 260; Hemoglobin A1C 10.7 % (4.0-6.0)
[2025-04-08] MEDS: metoprolol succinate ER (24 HR) 25 mg Tablet PO (04:34)
[2025-04-08] MEDS: insulin glargine 100 units/1 mL 20 UNIT SUBCUT (10:06)
--- NOTE | 2025-04-08 10:15 | PC.NURSE ---
pt pulled out his both PIV caths out. Hospitalist notified that pt does not want to have any insertion of IV access and would rather take his IV magnesium orally. Received order from Dr Corbin to give mag ox 400 mg BID.
[2025-04-08 10:42] LABS: Troponin T (5th) Once 556 ng/L (0-15)
--- NOTE | 2025-04-08 13:12 | P.DS_ITS ---
Discharge Providers Date of Admission: 04/07/25 19:03 Date of Discharge: April 08, 2025 Attending Provider at Admission: Rekha Moser MD Attending Provider at Discharge: Walker Corbin MD Consults: Walker Corbin MD and Rekha Moser MD Primary Care Provider: Cande Pichardo Diagnoses at Discharge Discharge Diagnosis 1. Acute coronary syndrome: Details from hospital stay: Patient was admitted through the ER directly to [facility]. I was asked to consult or admit but I was only able to consult and assume care after LAD stent placed. Troponin was 389 last night and 556 this morning. LDL 65 triglycerides 75 Patient was treated with aspirin Plavix and beta-blockers. He was in persistent A-fib with heart rate around the 100. I lowered his heart rate and start him on apixaban. Patient gives his opinion that he is having some chest pain that is typical of slow resolution after this stent similar to his last stent. I encouraged him to discuss this with Dr. Moser but patient states he is not willing to stay and will leave AMA. Dr. Moser talk with him and insisted that it is important for the patient to stay 1 more day because he had a calcified LAD and patient can get in-stent thrombosis. Patient refuses to do so and insist on leaving AMA. I have written up the medications for him to have those so that he will have the best chance of success. I did spoke with Dr. Moser on the phone just now 2. Atrial fibrillation, chronic: Details from hospital stay: Rate control with metoprolol as previous and start apixaban 5 mg twice a day. Because of dual antiplatelet therapy for a month plus apixaban patient will need to be on pantoprazole long-term 3. Diabetes mellitus: Details from hospital stay: Resume metformin on the . I counseled the patient that he is overweight and we are not giving him near as much insulin here. I have encouraged him to lower his insulin dose and decrease his caloric intake to allow weight loss 4. CKD (chronic kidney disease): Details from hospital stay: Creatinine stable this morning 0.8 post cath Other Information Additional DC diagnoses/information: Patient is leaving early AGAINST MEDICAL ADVICE of Dr. Moser and myself. 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 Patient went to [facility] and was found to have tortuous proximal high- grade 90% hazy stenosis during the culprit vessel and has a single drug-eluting stent placed by Dr. Moser within the last hour. Patient tells me he has chest pain 7/10 right now better than the 9/10 this morning. Patient tells me his heart rate is as high as 108 or 109 at times and he has been told this will happen because he has A-fib Hospital Course Hospital Course Patient had a stent placed in LAD. Continue dual antiplatelet therapy. Patient had some post stent still discomfort 7/10. This has improved this morning to a vague pain that he will not characterize. He is insistent upon going home. Patient has been counseled that he needs to be observed for another day in the hospital by Dr. Moser and I counseled him earlier to follow what ever recommendations Dr. Moser recommended but patient is insistent upon leaving AMA. We have written for him to have his Plavix aspirin and apixaban and pantoprazole so he has the best chance of success. Dr. Moser will still see him in follow-up in the clinic but simply cannot recommend patient going home today without add itional time for monitoring. Physical Exam Narrative: General well-developed well-nourished male in no acute cardiopulmonary stress CV regular rate and rhythm Lungs clear to auscultation bilaterally Abdomen positive bowel tones soft nontender Calves no tenderness cords pretibial edema Skin warm and dry Mentation alert and oriented Oropharynx edentulous Discharge Data Studies Completed and Pending Pending at discharge Category Date Time Status REHABILITATION THERAPY AIDE request for service Stat Exams 04/07/25 16:31 Ordered Laboratory Results WBC 8.16 10^3/uL (3.29-11.43) 04/08/25 02:22 RBC 4.54 10^6/uL (3.85-5.65) 04/08/25 02:22 Hgb 14.60 g/dL (11.27-16.99) 04/08/25 02:22 Hct 41.6 % (37-53) 04/08/25 02:22 MCV 91.6 fl (82-101) 04/08/25 02:22 MCH 32.2 pg (27-33) 04/08/25 02:22 MCHC 35.1 g/dL (30-55) 04/08/25 02:22 RDW 13.0 % (12.1-15.1) 04/08/25 02:22 Plt Count 279 10^3/cmm (157-399) 04/08/25 02:22 MPV 10.0 fL (7.4-10.4) 04/08/25 02:22 Neut % (Auto) 54.8 % 04/08/25 02:22 Lymph % (Auto) 32.1 % 04/08/25 02:22 [place] % (Auto) 10.4 % 04/08/25 02:22 Eos % (Auto) 1.8 % 04/08/25 02:22 Baso % (Auto) 0.5 % 04/08/25 02:22 Neut # (Auto) 4.47 10^3/uL (1.8-7.7) 04/08/25 02:22 Lymph # (Auto) 2.6 10^3/uL (0.8-4.8) 04/08/25 02:22 [place] # (Auto) 0.9 10^3/uL (0.2-0.9) 04/08/25 02:22 Eos # (Auto) 0.2 10^3/uL (0.0-0.8) 04/08/25 02:22 Baso # (Auto) 0.0 10^3/uL (0.0-0.1) 04/08/25 02:22 Nucleated RBC % (auto) 0 % 04/08/25 02:22 Nucleated RBCs # 0.0 /100WBC 04/08/25 02:22 Sodium 136 mmol/L (136-145) 04/08/25 02:22 Potassium 4.5 mmol/L (3.5-5.1) 04/08/25 02:22 Chloride 102 mmol/L (98-107) 04/08/25 02:22 Carbon Dioxide 20 mmol/L (22-29) L 04/08/25 02:22 Anion Gap 18.5 (5-19) 04/08/25 02:22 BUN 18 mg/dL (8-23) 04/08/25 02:22 Creatinine 0.8 mg/dL (0.7-1.2) 04/08/25 02:22 GFR Calculation 96.1 mL/min (90-130) 04/08/25 02:22 Glucose 139 mg/dL (65-115) H 04/08/25 02:22 POC Glucose 264 mg/dL (70-110) H 04/08/25 11:51 Estimat Average Glucose 260 04/08/25 02:22 Hemoglobin A1c 10.7 % (4.0-6.0) H 04/08/25 02:22 Calculated Osmolality 286 mOsm/kg (285-295) 04/08/25 02:22 Calcium 8.1 mg/dL (8.5-10.5) L 04/08/25 02:22 Magnesium 1.6 mg/dL (1.7-2.3) L 04/08/25 02:22 Troponin T 5th Gen ng/L 556 ng/L (0-15) H* 04/08/25 10:04 Triglycerides 75 mg/dL (0-150) 04/08/25 02:22 Cholesterol 111 mg/dL (0-200) 04/08/25 02:22 LDL Cholesterol, Calc 65 mg/dL (50-129) 04/08/25 02:22 HDL Cholesterol 31 mg/dL (60-100) L 04/08/25 02:22 LDL/HDL Ratio 2.10 RATIO (0.00-3.22) 04/08/25 02:22 Cholesterol/HDL Ratio 3.58 mg/dL (1.0-5.00) 04/08/25 02:22 Vitals Last Vital Signs Temp 98.5 F 04/07/25 15:58 Pulse 73 04/08/25 04:00 Resp 8 L 04/08/25 04:00 BP 104/68 04/08/25 04:00 Pulse Ox 95 04/08/25 04:00 O2 Del Method Room Air 04/08/25 00:36 Discharge Plan Discharge Patient Disposition: Home Condition: Stable Prescriptions: New magnesium oxide 400 mg (241.3 mg magnesium) Tablet 400 mg PO BID Qty: 60 0RF aspirin 81 mg Tablet,Delayed Release (Dr/Ec) 81 mg PO DAILY Qty: 90 0RF pantoprazole 40 mg Tablet,Delayed Release (Dr/Ec) 40 mg PO DAILY Qty: 60 0RF Eliquis 5 mg Tablet 5 mg PO BID@0900,2100 Qty: 60 0RF Continued lisinopril 5 mg tablet 5 mg PO DAILY atorvastatin 80 mg tablet 80 mg PO DAILY clopidogrel 75 mg tablet 75 mg PO DAILY Lantus Solostar U-100 Insulin 100 unit/mL (3 mL) insulin pen 100 unit SUBCUT DIRECTED Rx Instructions: 35 units in AM and 30 units in PM isosorbide mononitrate 60 mg tablet extended release 24 hr See Rx Instructions .ROUTE .COMPLEX Qty: 90 3RF Dose Instruction: TAKE 1/2 TABLET BY MOUTH TWICE DAILY Rx Instructions: TAKE 1/2 TABLET BY MOUTH TWICE DAILY nitroglycerin [Nitrostat] 0.4 mg tablet, sublingual 0.4 mg SUBLINGUAL Q5M PRN (Reason: chest pain) Qty: 25 6RF Rx Instructions: do not exceed 3 doses per episode meclizine 12.5 mg tablet 12.5 mg PO TID metoprolol succinate 25 mg tablet extended release 24 hr 25 mg PO BID Held metformin 1,000 mg tablet 1,000 mg PO DAILY Hold Instructions: Resume on 04/11/25. 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 OK for DC: Hospitalist Discharge Order = DC NOW: Discharge Order (Routine); Ordered 04/08/25 Ordered By: Walker Corbin Referrals: Cande Pichardo FNP [Primary Care Provider, Family Practice] Sarah Devine FNP [Nurse Practitioner, Cardiology] Maddy Hsieh [Family Provider, Family Practice] Discharge Diet: Regular and Diabetic Discharge Activity: Increase activity as tolerated Patient Instructions: Aspirin (By mouth), Pantoprazole (By mouth) (Protonix), Magnesium Oxide (By mouth) (Mag-Ox 400, [facility]a Plus [facility]..., Apixaban (By mouth) (Eliquis), Opioid Safety, Post Angiogram Home Care Instructions, Patient Portal & Minor Instructions Activity Restrictions/Additional Instructions: Limit your calories to 2000 daily which should allow you weight loss of 2 pounds a week. Once you get below 200 pounds decrease your calories to 1800 butch daily until you reach 180 pounds Take less insulin than you currently are so that you can eat less calories and not bottom out your blood sugars Because you have atrial fibrillation we have started you on apixaban for anticoagulation which means blood thinners to prevent clots in your heart that can shoot downstream and cause strokes in your brain. Continue aspirin and Plavix with this for 1 month then discontinue the aspirin and continue only the Plavix and apixaban. You will need to get refills from your primary care provider. Notably you are at increased risk of stomach ulcers with these 3 medications taken together so we have started you on pantoprazole 40 mg daily which is an acid suppressor. It is important that you take this with those medications I have written up this discharge as you are insisting on going home today whether or not you are seen by Dr. Moser. Please return if you should have chest pain unrelieved by nitroglycerin Discharge Attestations Time Spent in Discharge Care*: greater than 30 min Time Spent in Smoking Cessation: Patient is not a smoker Quality Metrics Clinical Quality Measures [ Acute Myocardial Infaction { Clinical Trial Participant: No; Contraindication to aspirin: None; Aspirin prescribed; Contraindication to statin: None; Statin prescribed;}] Coding Level of Care Code 33248 Diagnoses Acute coronary syndrome I24.9 Atrial fibrillation, chronic I48.20 Diabetes mellitus E11.9 CKD (chronic kidney disease) N18.9 Time Spent (min) 45
--- NOTE | 2025-04-08 13:28 | P.PN_ITS ---
Subjective 2 Subjective: Patient denies any complaint but would like to go home. I have detailed discussion with the patient and he had stent placed in proximal LAD had episode of non-ST elevation ME, I ask him to stay 24 more hours for optimization of medicine patient declined and would like to leave even if it is against medical advised Vitals/I&O/Wt Last Vital Signs Temp 98.5 F 04/07/25 15:58 Pulse 73 04/08/25 04:00 Resp 8 L 04/08/25 04:00 BP 104/68 04/08/25 04:00 Pulse Ox 95 04/08/25 04:00 O2 Del Method Room Air 04/08/25 00:36 04/07/25 04/08/25 04/08/25 22:59 06:59 14:59 Intake Total 1000 / 1000 240 / 1240 360 / 360 Output Total 400 / 400 750 / 750 Balance 1000 / 1000 -160 / 840 -390 / -390 Weight last 48 hrs Weight 255 lb 8.252 oz Weight 230 lb Physical Exam 2 Const: OTHER: GENERAL: Patient is alert, awake and oriented x3. HEART: Regular S1 and S2. No murmur, rub or gallop. LUNGS: Clear to auscultate bilaterally. CENTRAL NERVOUS SYSTEM: Grossly nonfocal. EXTREMITIES: Lower extremities with out edema bilaterally Data 04/08/25 02:22 04/08/25 02:22 A&P Assessment and plan 1. Chest pain: 2. Dyslipidemia: 3. Aortic root dilation: 4. Atrial fibrillation, chronic: 5. Essential hypertension: 6. Schizotypal disorder: Plan: Yesterday patient was taken to the [facility] for unstable non-ST elevation ME. He was noted to have calcified proximal LAD stenosis treated with single drug-eluting stent postdilated with noncompliant balloon under IVUS guidance. Excellent angiographic result was achieved. Circumflex left main and RCA did not show significant stenosis, he has patent previously placed RCA stent. Plan to continue aspirin statin beta-melisa apixaban and lisinopril. Estimate ejection fraction by LV gram was normal 55%. Patient would like to go home and would not like to stay for 1 more day for optimization of medicine. He clearly understand that he did not take medicine such as clopidogrel or aspirin he can suffer from stent thrombosis, heart attack arrhythmia worst-case scenario . Patient understand that he should be taking apixaban and watch for the bleeding since he has history of atrial fibrillation. Our plan is to continue aspirin clopidogrel and apixaban for 1 month followed by apixaban and clopidogrel. Patient was not very cooperative but I have a good discussion with him in the presence of his brother by bedside. We will follow him up in my clinic in 7 to 10 days. Our hospitalist colleague will send his medication again he told me that he have clopidogrel aspirin and other medication at home. We still will send some refills. PDMP PDMP Reviewed: Not Reviewed Attestations 2 Medical Necessity Statement*: As per medicine Coding Level of Care Code Acute Code for g Fwd Diagnoses Chest pain R07.9 Dyslipidemia E78.5 Aortic root dilation I77.810 Atrial fibrillation, chronic I48.20 Essential hypertension I10 Hypertension type: essential hypertension Schizotypal disorder F21
--- NOTE | 2025-04-08 13:49 | PC.NURSE ---
Discharge Note Patient discharged to home accompanied by brother/friend. Discharge instructions reviewed with patient and/or patient account representative. Mobile pharmacy medications and/or prescriptions provided. Belongings/home medications returned.
== END 2025-04-08 13:45 | disposition home or self-care (01) ==
LOC: ER 16:03 → CCL 16:38 → CSU 19:07
PROVIDERS: Internal Medicine; Admitting Provider Internal Medicine Cardiovascular Disease; Emergency Provider Family Medicine; Family Provider Nurse Practitioner Family; PCP Nurse Practitioner Family; Visit Provider Internal Medicine Cardiovascular Disease
DX: I25.118 Atherosclerotic heart disease of native coronary artery with other forms of angina pectoris (principal); I24.9 Acute ischemic heart disease, unspecified; I48.20 Chronic atrial fibrillation, unspecified; E11.22 Type 2 diabetes mellitus with diabetic chronic kidney disease; I12.9 Hypertensive chronic kidney disease with stage 1 through stage 4 chronic kidney disease, or unspecified chronic kidney disease; N18.9 Chronic kidney disease, unspecified; K21.9 Gastro-esophageal reflux disease without esophagitis; Z79.82 Long term (current) use of aspirin; Z79.84 Long term (current) use of oral hypoglycemic drugs; Z79.02 Long term (current) use of antithrombotics/antiplatelets; Z53.29 Procedure and treatment not carried out because of patient's decision for other reasons; E78.5 Hyperlipidemia, unspecified; I25.2 Old myocardial infarction; Z95.5 Presence of coronary angioplasty implant and graft; F21 Schizotypal disorder; Z79.4 Long term (current) use of insulin; J44.9 Chronic obstructive pulmonary disease, unspecified; F31.89 Other bipolar disorder; Z87.891 Personal history of nicotine dependence
CPT/HCPCS: 36415; 36416; 80048; 80061; 82962; 83036; 83735; 84484; 85025; 85347; 92978; 93005; 93458; 96372; 96374; 96375; 99152; 99153; 99285; C1725; C1753; C1769; C1874; C1887; C1894; C9606; G0378; J1200; J1644; J1815; J2250; J2270; J2405; J3010; J3490; J7030; J9999; Q9967